=== PATIENT | male | born 1940 ===

== ENCOUNTER 2017-09-22 16:44 | Inpatient (IN) | payer MEDICARE, MEDICAID ==
[2017-09-22] MEDS ORDERED: Albuterol-Ipratrop 3 mg / 0.5 (3 ml) UD IH STA ×3 (17:49→20:21)
[2017-09-22 18:42] LABS: VENOUS BLOOD GAS BASE EXCESS 3.2 mmol/L (0.0-2.0); VENOUS BLOOD GAS PO2 143 mm/Hg (30-55); VENOUS BLOOD PH 7.36 (7.32-7.43)
[2017-09-22 18:51] LABS: ALBUMIN 3.3 g/dL (3.0-4.8); ALT/SGPT 20 U/L (7-56); AST/SGOT 30 U/L (17-59); BLOOD UREA NITROGEN 17 mg/dL (7-21); CALCIUM 8.5 mg/dL (8.4-10.5); GFR AFRICAN-AMERICAN > 60; GFR NON-AFRICAN AMERICAN > 60
[2017-09-22 18:52] LABS: BASO # 0.04 [, K/mm3] (0.0-2.0); BASO % 0.6 % (0.0-3.0); EOS # 0.5 (0.0-0.7); EOS % 6.4 % (1.5-5.0); GRAN # 4.59 (1.4-6.5); GRAN % 63.3 % (50.0-68.0); HEMOGLOBIN 12.4 g/dL (14.0-18.0); LYMPH # 1.1 (1.2-3.4); LYMPH % 15.2 % (22.0-35.0); MEAN CELL VOLUME 83.6 fl (80.0-105.0); MEAN CORPUSCULAR HEMOGLOBIN 26.1 pg (25.0-35.0); MEAN CORPUSCULAR HGB CONC 31.2 g/dl (31.0-37.0); MONO # 1.1 (0.1-0.6); MONO % 14.5 % (1.0-6.0); RBC 4.76 [, 10^6/uL] (3.5-6.1); RED CELL DISTRIBUTION WIDTH 17.5 % (11.5-14.5); WHITE BLOOD COUNT 7.2 [, 10^3/ul] (4.5-11.0)
[2017-09-22 18:54] LABS: URINE BILIRUBIN NEGATIVE (NEGATIVE); URINE BLOOD NEGATIVE (NEGATIVE); URINE GLUCOSE (UA) NEGATIVE (NEGATIVE); URINE LEUKOCYTE ESTERASE NEGATIVE Leu/uL (NEGATIVE); URINE NITRATE NEGATIVE (NEGATIVE); URINE PROTEIN NEGATIVE mg/dL (<30 mg/dL); URINE UROBILINOGEN 0.2 E.U./dL (<1 E.U./dL)
[2017-09-22 18:58] LABS: URINE APPEARANCE CLEAR (CLEAR); URINE COLOR YELLOW (YELLOW)
[2017-09-22 19:01] LABS: INR 2.25 (0.93-1.08); PARTIAL THROMBOPLASTIN TIME 35.3 Seconds (25.1-36.5); PROTHROMBIN TIME 26.1 SECONDS (9.4-12.5)
[2017-09-22 19:02] LABS: TROPONIN I < 0.01 ng/mL
[2017-09-22] MEDS ORDERED: Azithromycin 500MG/NS 250ml 500 MG/250 ML BAG IVPB STA (19:31)
[2017-09-22] MEDS ORDERED: cefTRIAXone 1 gm 1 GM/100 ML BAG IVPB STA (19:31)
--- NOTE | 2017-09-22 19:52 | ED PDOC ---
Arrival/HPI - General Chief Complaint: Shortness Of Breath Time Seen by Provider: 09/22/17 17:06 Historian: Jail, EMS - History of Present Illness Narrative History of Present Illness (Text): 09/22/17 19:57 Patient is a 77 yo male presents from residential with history of "wheezing". Patient is nonverbal and cannot provide any further history. Past Medical History - Cardiac Hx Cardiac Disorders: Yes Hx Atrial Fibrillation: Yes Hx Congestive Heart Failure: Yes Hx Hypertension: Yes - Pulmonary Hx Asthma: Yes - Neurological HX Cerebrovascular Accident: Yes Hx Dementia: Yes - Endocrine/Metabolic Hx Diabetes Mellitus Type 1: Yes - Gastrointestinal Hx Gastroesophageal Reflux: Yes - Psychiatric Hx Substance Use: No Family/Social History Family/Social History: Unknown Family HX Smoking Status: Unknown If Ever Smoked Hx Alcohol Use: No Hx Substance Use: No Allergies/Home Meds Allergies/Adverse Reactions: Allergies Iodinated Contrast- Oral and IV Dye Allergy (Verified 09/22/17 17:19) ANAPHYLAXIS iodine Allergy (Verified 09/22/17 17:19) ANAPHYLAXIS Sulfa (Sulfonamide Antibiotics) Allergy (Verified 09/22/17 17:19) ANAPHYLAXIS Home Medications: Home Meds Medication Instructions Recorded Confirmed Acetaminophen [Tylenol 325mg tab] 650 mg PO Q4 PRN 09/22/17 09/22/17 Aspirin [Aspirin Chewable] 81 mg PO DAILY 09/22/17 09/22/17 Cetirizine HCl [All Day Allergy] 10 mg PO HS 09/22/17 09/22/17 Magnesium Hydroxide [Milk of 09/22/17 Magnesia] Omeprazole [Omeprazole] 20 mg PO DAILY 09/22/17 09/22/17 Potassium Chloride [Klor-Con 20 meq PO DAILY 09/22/17 09/22/17 Sprinkle] SITagliptin [Januvia] 25 mg PO DAILY 09/22/17 09/22/17 Simvastatin [Simvastatin] 10 mg PO DAILY 09/22/17 09/22/17 Tamsulosin [Flomax] 0.4 mg PO DAILY 09/22/17 09/22/17 Warfarin [Coumadin] 3 mg PO DAILY 09/22/17 09/22/17 Review of Systems - Review of Systems Respiratory: SOB, Cough, Wheezing Physical Exam Vital Signs Reviewed: Yes Vital Signs Temp Pulse Resp BP Pulse Ox 09/22/17 18:24 101.4 F H 09/22/17 17:09 99.2 F 84 16 109/66 99 09/22/17 16:56 19 100 Temperature: Febrile Respiratory Rate: Tachypneic Appearance: Positive for: Ill-Appearing Mental Status: Positive for: Confused Finger Stick Blood Glucose: 100 - Systems Exam Head: Present: Atraumatic Mouth: Present: Dry Pharnyx: No: ERYTHEMA Nose (Internal): Present: Normal Inspection, No Active Bleeding Neck: No: Meningeal Signs Respiratory/Chest: Present: Wheezes, Rhonchi, Tachypneic Cardiovascular: Present: Murmurs, Tachycardic Abdomen: Present: Distention. No: Tenderness Rectal: No: Gross Blood, Melena Upper Extremity: Present: Other (contractures). No: Cyanosis Lower Extremity: Present: Other (contractures, right heel ulcer and boot) Neurological: Present: Other (contractures, will not follow commands or speak) Skin: Present: Warm Psychiatric: No: Normal Insight, Normal Concentration Medical Decision Making ED Course and Treatment: 09/22/17 20:14 Patient presents from [facility] reportedly with history of asthma presents with wheezing and shortness of breath. Patient is not verbal, review of [facility] records states prior history of cva, diabetes, htn, asthma. Duoneb given with no improvement in wheezing. Additional nebulizers ordered. He is febrile. Questionable infiltrate noted on cxr. Will obtain blood cultures and initiate antibiotics. Initial lactate unremarkable. Remains tachypneic. BP stable. Will admit for fever, asthma exacerbation, ? pneumonia. No prior admissions to [facility], will admit to on-call physician. 09/22/17 20:[address] Abdirizak Luis, requests admission to [facility]. - Lab Interpretations Lab Results: 09/22/17 18:00 09/22/17 18:00 Lab Results 09/22/17 20:22: pCO2 27 L, pO2 132.0 H, HCO3 15.6 L, ABG pH 7.37, ABG Total CO2 16.4 L, ABG O2 Saturation 99.8 H, ABG Base Excess -8.1 L, ABG Potassium 1.9 L*, Glucose 69 L, Lactate 0.6 L, FiO2 32.0, Sodium 149.0 H, Chloride 123.0 H, Arterial Blood Potassium 1.9 L* 09/22/17 18:34: pO2 143 H, VBG pH 7.36, VBG pCO2 53.0, VBG HCO3 29.9 H, VBG Total CO2 31.5 H, VBG O2 Sat (Calc) 100.4 H, VBG Base Excess 3.2 H, VBG Potassium 4.1, Glucose 103, Lactate 1.0, FiO2 21.0, Sodium 138.0, Chloride 106.0 , Venous Blood Potassium 4.1 09/22/17 18:30: Urine Color Yellow, Urine Appearance Clear, Urine pH 6.0, Ur Specific [place] 1.020, Urine Protein Negative, Urine Glucose (UA) Negative, Urine Ketones Negative, Urine Blood Negative, Urine Nitrate Negative, Urine Bilirubin Negative, Urine Urobilinogen 0.2, Ur Leukocyte Esterase Negative 09/22/17 18:30: Influenza Typ A,B (EIA) Negative for flu a/b 09/22/17 18:06: POC Glucose (mg/dL) 100 09/22/17 18:00: Digoxin < 0.4 L 09/22/17 18:00: Sodium 138, Potassium 4.0, Chloride 104, Carbon Dioxide 29, Anion Gap 10, BUN 17, Creatinine 0.7 L, Est GFR ( Amer) > 60, Est GFR ( Non-Af Amer) > 60, Random Glucose 98, Calcium 8.5, Total Bilirubin 0.4, AST 30, ALT 20, Alkaline Phosphatase 61, Lactate Dehydrogenase 319 L, Total Creatine Kinase 28 L, Troponin I < 0.01, Total Protein 6.5, Albumin 3.3, Globulin 3.2, Albumin/Globulin Ratio 1.0 L 09/22/17 18:00: PT 26.1 H, INR 2.25 H, APTT 35.3 09/22/17 18:00: WBC 7.2, RBC 4.76, Hgb 12.4 L, Hct 39.8 L, MCV 83.6, MCH 26.1, MCHC 31.2, RDW 17.5 H, Plt Count 150, MPV 10.0, Gran % 63.3, Lymph % (Auto) 15.2 L, [place] % (Auto) 14.5 H, Eos % (Auto) 6.4 H, Baso % (Auto) 0.6, Gran # 4.59 , Lymph # 1.1 L, [place] # 1.1 H, Eos # 0.5, Baso # 0.04 - RAD Interpretation Radiology Orders: 09/22/17 17:47 CHEST PORTABLE [RAD] Stat - EKG Interpretation EKG Interpretation (Text): EKG at 17:51 sinus tachycardia with premature atrial complexes, right bundle branch block, nonspecific t wave abnormality Interpreted by ED Physician: Yes Type: 12 lead EKG - Medication Orders Current Medication Orders: Discontinued Medications Acetaminophen (Tylenol 650 Mg Supp) 650 mg RC ONCE STA Stop: 09/22/17 18:25 Last Admin: 09/22/17 18:55 Dose: 650 mg MAR Pain/Vitals Document 09/22/17 18:55 SF (Rec: 09/22/17 18:55 SF [id number]) Pain Reassessment Is This A Pain ReAssessment? Yes Sleep Is patient sleeping during reassessment? No Presence of Pain Presence of Pain Yes Albuterol/Ipratropium (Duoneb 3 Mg/0.5 Mg (3 Ml) Ud) 3 ml IH STAT STA Stop: 09/22/17 17:50 Last Admin: 09/22/17 17:55 Dose: 3 ml Albuterol/Ipratropium (Duoneb 3 Mg/0.5 Mg (3 Ml) Ud) 3 ml IH STAT STA Stop: 09/22/17 20:11 Last Admin: 09/22/17 20:15 Dose: 3 ml Albuterol/Ipratropium (Duoneb 3 Mg/0.5 Mg (3 Ml) Ud) 3 ml IH STAT STA Stop: 09/22/17 20:22 Last Admin: 09/22/17 20:35 Dose: 3 ml Ceftriaxone Sodium (Rocephin 1 Gram Ivpb) 1 gm in 100 mls @ 200 mls/hr IVPB ONCE STA PRN Reason: Protocol Stop: 09/22/17 20:00 Last Admin: 09/22/17 20:20 Dose: 200 mls/hr eMAR Start Stop Document 09/22/17 20:20 JOL (Rec: 09/22/17 21:00 JOL [id number]) Intravenous Solution Start Date 09/22/17 Start Time 20:20 End Date 09/22/17 End time 20:50 Total Infusion Time 30 Azithromycin (Zithromax 500mg In Ns) 500 mg in 250 mls @ 166.667 mls/hr IVPB STAT STA PRN Reason: Protocol Stop: 09/22/17 21:00 Last Admin: 09/22/17 22:09 Dose: 166.667 mls/hr eMAR Start Stop Document 09/22/17 22:09 JOJuan (Rec: 09/22/17 22:09 JOL [id number]) Intravenous Solution Start Date 09/22/17 Start Time 22:09 End Date 09/22/17 End time 23:39 Total Infusion Time 90 Levalbuterol HCl (Xopenex) 0.63 mg IH ONCE STA Stop: 09/22/17 21:59 Last Admin: 09/22/17 22:21 Dose: 0.63 mg Methylprednisolone (Solu-Medrol) 125 mg IVP STAT STA Stop: 09/22/17 22:01 Last Admin: 09/22/17 22:21 Dose: 125 mg IVP Administration Document 09/22/17 22:21 YP (Rec: 09/22/17 22:21 YP [id number]) Charges for Administration # of IVP Administrations 1 Disposition/Present on Arrival - Present on Arrival Any Indicators Present on Arrival: No History of DVT/PE: No History of Uncontrolled Diabetes: No Urinary Catheter: No History of Decub. Ulcer: No History Surgical Site Infection Following: None - Disposition Have Diagnosis and Disposition been Completed?: Yes Diagnosis: Asthma exacerbation, Fever, Pneumonia Disposition: HOSPITALIZED Disposition Time: 20:21 Patient Plan: Admission, Telemetry Patient Problems: Current Active Problems Problem Status Onset Asthma exacerbation Acute Fever Acute Pneumonia Acute Condition: SERIOUS
[2017-09-22 20:25] LABS: ARTERIAL BLOOD GAS HCO3 15.6 mmol/L (21-28); ARTERIAL BLOOD GAS O2 SAT 99.8 % (95-98); ARTERIAL BLOOD GAS PCO2 27 mm/Hg (35-45); ARTERIAL BLOOD GAS PH 7.37 (7.35-7.45); ARTERIAL BLOOD GAS TCO2 16.4 mmol.L (22-28)
--- NOTE | 2017-09-22 21:41 | CP.PCM.HP ---
<Trent Thrasher - Last Filed: 09/23/17 07:00> History of Present Illness - History of Present Illness History of Present Illness: Chief Complaint: Shortness of breath and wheezing. As per nursing staff at [facility] patient is not aphasic; normally patient can speak in sentences however does not usually like to speak but will from time to time. However this morning patient was not communicating as he normally can and therefore was seen as a change in mental status. Patient is [place] speaking, understanding of Tunisian is limited. HPI: History obtained from nursing staff at [facility] since patient is unable to communicate due to alteration of mental status. As per nursing staff patient is a 77 year old male with a past medical history of Cerebrovascular accident in 2011, non insulin dependent diabetes mellitus, hyperlipidemia, hypertension, atrial fibrillation, asthma, gastroesophageal reflux disease, benign prostatic hyperplasia, degenerative nervous system disease, osteoarthropathy who presented this morning with shortness of breath associated with use of accessory muscles as well as bradycardia at 42 bpm. residential physician was notified and patient was admitted to [facility] ED. PMD: Dr. Luis Past medical history: Cerebrovascular accident in 2011, non insulin dependent diabetes mellitus, hyperlipidemia, hypertension, atrial fibrillation, asthma, gastroesophageal reflux disease, benign prostatic hyperplasia, degenerative nervous system disease, osteoarthropathy Medications: Aspirin 81 po daily, zantac 10 mg qHS, omeprazole 20 mg qD, 1 daily multivitamin, potassium chloride 20 MEQ qD, zocor 10 mg qD, flomax 0.4 mg qD, coumadin 3 mg daily except Thursday and Thursday, januvia 25 mg 1 tab qD, Duoneb q6h PRN Family history: unobtainable Past Surgical history: residential denies Allergies: Oral/IV contrast, iodine Present on Admission - Present on Admission Any Indicators Present on Admission: No Review of Systems - Review of Systems Systems not reviewed;Unavailable: Altered Mental Status Past Patient History - Past Social History Smoking Status: Unknown If Ever Smoked - CARDIAC Hx Cardiac Disorders: Yes Hx Atrial Fibrillation: Yes Hx Congestive Heart Failure: Yes Hx Hypertension: Yes - PULMONARY Hx Asthma: Yes - NEUROLOGICAL HX Cerebrovascular Accident: Yes Hx Dementia: Yes - ENDOCRINE/METABOLIC Hx Diabetes Mellitus Type 1: Yes - GASTROINTESTINAL Hx Gastroesophageal Reflux: Yes - PSYCHIATRIC Hx Substance Use: No Meds Allergies/Adverse Reactions: Allergies Allergy/AdvReac Type Severity Reaction Status Date / Time Iodinated Contrast- Oral and Allergy ANAPHYLAXIS Verified 09/22/17 17:19 IV Dye iodine Allergy ANAPHYLAXIS Verified 09/22/17 17:19 Sulfa (Sulfonamide Allergy ANAPHYLAXIS Verified 09/22/17 17:19 Antibiotics) Physical Exam - Head Exam Head Exam: ATRAUMATIC, NORMAL INSPECTION, NORMOCEPHALIC - Eye Exam Eye Exam: EOMI, Normal appearance - ENT Exam ENT Exam: Mucous Membranes Moist, Normal Exam - Respiratory Exam Respiratory Exam: Clear to Auscultation Bilateral, Rhonchi (upper quadrant B/L) , Wheezes, NORMAL BREATHING PATTERN - Cardiovascular Exam Cardiovascular Exam: Irregular Rhythm - GI/Abdominal Exam GI & Abdominal Exam: Normal Bowel Sounds, Soft - Extremities Exam Extremities exam: Positive for: pedal edema (bilaterally) - Back Exam Back exam: NORMAL INSPECTION - Neurological Exam Neurological exam: Altered - Skin Skin Exam: Normal Color, Warm Results - Vital Signs Recent Vital Signs: Last Vital Signs Temp 101.4 F H 09/22/17 18:24 Pulse 84 09/22/17 17:09 Resp 16 09/22/17 17:09 BP 109/66 09/22/17 17:09 Pulse Ox 99 09/22/17 17:09 - Labs Result Diagrams: 09/22/17 18:00 09/22/17 18:00 Labs: Laboratory Results - last 24 hr 09/22/17 09/22/17 09/22/17 18:00 18:00 18:00 WBC 7.2 RBC 4.76 Hgb 12.4 L Hct 39.8 L MCV 83.6 MCH 26.1 MCHC 31.2 RDW 17.5 H Plt Count 150 MPV 10.0 Gran % 63.3 Lymph % (Auto) 15.2 L [place] % (Auto) 14.5 H Eos % (Auto) 6.4 H Baso % (Auto) 0.6 Gran # 4.59 Lymph # 1.1 L [place] # 1.1 H Eos # 0.5 Baso # 0.04 PT 26.1 H INR 2.25 H APTT 35.3 pCO2 pO2 HCO3 ABG pH ABG Total CO2 ABG O2 Saturation ABG Base Excess ABG Potassium VBG pH VBG pCO2 VBG HCO3 VBG Total CO2 VBG O2 Sat (Calc) VBG Base Excess VBG Potassium Glucose Lactate FiO2 Sodium 138 Potassium 4.0 Chloride 104 Carbon Dioxide 29 Anion Gap 10 BUN 17 Creatinine 0.7 L Est GFR ( Amer) > 60 Est GFR (Non-Af Amer) > 60 POC Glucose (mg/dL) Random Glucose 98 Calcium 8.5 Total Bilirubin 0.4 AST 30 ALT 20 Alkaline Phosphatase 61 Lactate Dehydrogenase 319 L Total Creatine Kinase 28 L Troponin I < 0.01 Total Protein 6.5 Albumin 3.3 Globulin 3.2 Albumin/Globulin Ratio 1.0 L Arterial Blood Potassium Venous Blood Potassium Urine Color Urine Appearance Urine pH Ur Specific [place] Urine Protein Urine Glucose (UA) Urine Ketones Urine Blood Urine Nitrate Urine Bilirubin Urine Urobilinogen Ur Leukocyte Esterase Digoxin Influenza Typ A,B (EIA) 09/22/17 09/22/17 09/22/17 18:00 18:06 18:30 WBC RBC Hgb Hct MCV MCH MCHC RDW Plt Count MPV Gran % Lymph % (Auto) [place] % (Auto) Eos % (Auto) Baso % (Auto) Gran # Lymph # [place] # Eos # Baso # PT INR APTT pCO2 pO2 HCO3 ABG pH ABG Total CO2 ABG O2 Saturation ABG Base Excess ABG Potassium VBG pH VBG pCO2 VBG HCO3 VBG Total CO2 VBG O2 Sat (Calc) VBG Base Excess VBG Potassium Glucose Lactate FiO2 Sodium Potassium Chloride Carbon Dioxide Anion Gap BUN Creatinine Est GFR ( Amer) Est GFR (Non-Af Amer) POC Glucose (mg/dL) 100 Random Glucose Calcium Total Bilirubin AST ALT Alkaline Phosphatase Lactate Dehydrogenase Total Creatine Kinase Troponin I Total Protein Albumin Globulin Albumin/Globulin Ratio Arterial Blood Potassium Venous Blood Potassium Urine Color Urine Appearance Urine pH Ur Specific [place] Urine Protein Urine Glucose (UA) Urine Ketones Urine Blood Urine Nitrate Urine Bilirubin Urine Urobilinogen Ur Leukocyte Esterase Digoxin < 0.4 L Influenza Typ A,B (EIA) Negative for flu a/b 09/22/17 09/22/17 09/22/17 18:30 18:34 20:22 WBC RBC Hgb Hct MCV MCH MCHC RDW Plt Count MPV Gran % Lymph % (Auto) [place] % (Auto) Eos % (Auto) Baso % (Auto) Gran # Lymph # [place] # Eos # Baso # PT INR APTT pCO2 27 L pO2 143 H 132.0 H HCO3 15.6 L ABG pH 7.37 ABG Total CO2 16.4 L ABG O2 Saturation 99.8 H ABG Base Excess -8.1 L ABG Potassium 1.9 L* VBG pH 7.36 VBG pCO2 53.0 VBG HCO3 29.9 H VBG Total CO2 31.5 H VBG O2 Sat (Calc) 100.4 H VBG Base Excess 3.2 H VBG Potassium 4.1 Glucose 103 69 L Lactate 1.0 0.6 L FiO2 21.0 32.0 Sodium 138.0 149.0 H Potassium Chloride 106.0 123.0 H Carbon Dioxide Anion Gap BUN Creatinine Est GFR ( Amer) Est GFR (Non-Af Amer) POC Glucose (mg/dL) Random Glucose Calcium Total Bilirubin AST ALT Alkaline Phosphatase Lactate Dehydrogenase Total Creatine Kinase Troponin I Total Protein Albumin Globulin Albumin/Globulin Ratio Arterial Blood Potassium 1.9 L* Venous Blood Potassium 4.1 Urine Color Yellow Urine Appearance Clear Urine pH 6.0 Ur Specific [place] 1.020 Urine Protein Negative Urine Glucose (UA) Negative Urine Ketones Negative Urine Blood Negative Urine Nitrate Negative Urine Bilirubin Negative Urine Urobilinogen 0.2 Ur Leukocyte Esterase Negative Digoxin Influenza Typ A,B (EIA) Assessment & Plan - Assessment and Plan (Free Text) Assessment: 77 year old male with a past medical history of Cerebrovascular accident in 2012, non insulin dependent diabetes mellitus, hyperlipidemia, hypertension, atrial fibrillation, asthma, gastroesophageal reflux disease, benign prostatic hyperplasia, degenerative nervous system disease, ostearthropathy who presented this morning with shortness of breath associated with use of accessory muscles as well as bradycardia at 42 bpm. Plan: AMS secondary to pneumonia vs. abdominal infection vs. UTI -Febrile at 101.4, WBC 7.2 continue to monitor vitals and CBC, CMP, Mg, Phos -Chest X-ray:infiltrates on right lower lung field; official read pending -Started on azithromycin and rocephin -CT chest ordered; results pending -CT abdomen/pelvis ordered; results pending -Blood and Urine cultures ordered; results pending -Procalcitonin ordered; results pending Asthma Exacerbation -Xopenex -Methylprednisolone -NC 2L; keep O2 saturation >92% Cerebrovascular accident in 2012 -Continue lipitor, aspirin -Swallow evaluation Diabetes Mellitus Type II -Insulin sliding scale-low -Blood glucose 100; continue to monitor -Home medication withheld Hyperlipidemia -Continue lipitor Hypertension -No intervention needed at this time Atrial fibrillation -Continue with coumadin Gastroesophageal reflux -Continue with protonix Benign prostatic hyperplasia -Continue with home tamsulosin DVT/GI prophylaxis: coumadin+SCDs/protonix <Marine Billy - Last Filed: 09/23/17 08:29> Results - Vital Signs Recent Vital Signs: Last Vital Signs Temp 97.4 F L 09/23/17 02:44 Pulse 74 09/23/17 02:44 Resp 16 09/23/17 02:44 BP 109/70 09/23/17 02:44 Pulse Ox 98 09/22/17 23:30 - Labs Result Diagrams: 09/23/17 06:30 09/23/17 06:30 Labs: Laboratory Results - last 24 hr 09/23/17 09/23/17 09/23/17 02:30 04:35 06:30 WBC 3.9 L D RBC 4.94 Hgb 12.8 L Hct 41.3 L MCV 83.6 MCH 25.9 MCHC 31.0 RDW 17.4 H Plt Count 133 MPV 9.7 Sodium Potassium Chloride Carbon Dioxide Anion Gap BUN Creatinine Est GFR ( Amer) Est GFR (Non-Af Amer) POC Glucose (mg/dL) 154 H Random Glucose Calcium Phosphorus Magnesium Total Bilirubin AST ALT Alkaline Phosphatase NT-Pro-B Natriuret Pep 475 H Total Protein Albumin Globulin Albumin/Globulin Ratio 09/23/17 09/23/17 06:30 07:33 WBC RBC Hgb Hct MCV MCH MCHC RDW Plt Count MPV Sodium 143 Potassium 4.0 Chloride 106 Carbon Dioxide 27 Anion Gap 15 BUN 15 Creatinine 0.7 L Est GFR ( Amer) > 60 Est GFR (Non-Af Amer) > 60 POC Glucose (mg/dL) 141 H Random Glucose 161 H Calcium 8.7 Phosphorus 3.5 Magnesium 1.6 L Total Bilirubin 0.3 AST 17 D ALT 16 Alkaline Phosphatase 65 NT-Pro-B Natriuret Pep Total Protein 6.8 Albumin 3.5 Globulin 3.4 Albumin/Globulin Ratio 1.0 L Attending/Attestation - Attestation I have personally seen and examined this patient.: Yes I have fully participated in the care of the patient.: Yes I have reviewed all pertinent clinical information: Yes Notes (Text): 09/23/17 08:28 Agree with documentation and orders placed.
[2017-09-22] MEDS ORDERED: Levalbuterol 0.63 MG/3 ML Inhal Soln UD IH STA (21:58)
--- NOTE | 2017-09-23 01:31 | CT ---
EXAM: CT Chest Without Intravenous Contrast CT Abdomen and Pelvis Without Intravenous Contrast CLINICAL HISTORY: 77 years old, male; Pain; Abdominal pain; Generalized; Chest pain; Patient HX: Pt contracted; Additional info: Abdominal pain on phys exam, AMS TECHNIQUE: Axial computed tomography images of the chest, abdomen and pelvis without intravenous contrast. All CT scans at this facility use one or more dose reduction techniques, viz.: automated exposure control; ma/kV adjustment per patient size (including targeted exams where dose is matched to indication; i.e. head); or iterative reconstruction technique. [id number] images are submitted. Coronal and sagittal reformatted images were created and reviewed. Limitations: Absence of IV contrast decreases sensitivity for detecting solid organ and vascular abnormality and injury. COMPARISON: No relevant prior studies available. FINDINGS: Artifacts: Limited due to motion and misregistration artifacts. CHEST: Lungs: There is moderate perihilar interstitial prominence consistent with viral bronchitis versus reactive airway disease versus chronic changes versus early failure. Bibasilar nonspecific infiltrates are present, consistent with atelectasis or pneumonia. Partially distended bladder measuring 13 cm with bladder wall thickening. Correlation with urinalysis is recommended only if clinical cystitis versus chronic obstruction is clinically suspected. The major airways are patent. COPD. Pleural space: Unremarkable. No significant effusion. No pneumothorax. Heart: Cardiomegaly with small pericardial effusion. ABDOMEN: Liver: Unremarkable. Gallbladder and bile ducts: Cholecystectomy. Pancreas: Unremarkable. No ductal dilation. Spleen: Unremarkable. No splenomegaly. Adrenals: There is nonspecific adrenal gland thickening. Kidneys and ureters: Nonobstructive renal stones. Right posterior renal collecting systems/pelvis stone. Complex anterior septated left renal cysts. Subcentimeter right renal cysts. Stomach and bowel: There is fecal distention of the rectum measuring 11 cm with colonic wall thickening representing constipation versus fecal impaction versus stool related proctocolitis. Diverticulosis. End Appendix: Nonspecific gastric thickening likely due to under distention. Correlation with clinical data is recommended if gastritis is suspected. Near normal appendix. PELVIS: Bladder: See above. Reproductive: Unremarkable. CHEST, ABDOMEN and PELVIS: Intraperitoneal space: Unremarkable. No significant fluid collection. No free air. Bones/joints: Degenerative changes within bilateral shoulders. Bony aortic arch. No acute fracture. No dislocation. Soft tissues: Bilateral gynecomastia. Bilateral inguinal herniation of fat. Vasculature: IVC filter. The aorta demonstrates calcified plaque and is mildly ectatic but normal in caliber. Lymph nodes: Unremarkable. No enlarged lymph nodes. IMPRESSION: 1. There is moderate perihilar interstitial prominence consistent with viral bronchitis versus reactive airway disease versus chronic changes versus early failure. Bibasilar nonspecific infiltrates are present, consistent with atelectasis or pneumonia. 2. There is fecal distention of the rectum measuring 11 cm with colonic wall thickening representing constipation versus fecal impaction versus stool related proctocolitis. 3. Partially distended bladder measuring 13 cm with bladder wall thickening. Correlation with urinalysis is recommended only if clinical cystitis versus chronic obstruction is clinically suspected. 4. Nonobstructive renal stones. Right posterior renal collecting systems/pelvis stone. Correlation with internal medicine evaluation and further workup or followup as recommended by patient's clinical data.
[2017-09-23 04:18] VITALS: BMI 20.1
[2017-09-23 07:14] LABS: HEMOGLOBIN 12.8 g/dL (14.0-18.0); MEAN CELL VOLUME 83.6 fl (80.0-105.0); MEAN CORPUSCULAR HEMOGLOBIN 25.9 pg (25.0-35.0); MEAN PLATELET VOLUME 9.7 fl (7.0-11.0); RBC 4.94 [, 10^6/uL] (3.5-6.1); RED CELL DISTRIBUTION WIDTH 17.4 % (11.5-14.5); WHITE BLOOD COUNT 3.9 [, 10^3/ul] (4.5-11.0)
[2017-09-23 08:02] LABS: ALBUMIN 3.5 g/dL (3.0-4.8); ALT/SGPT 16 U/L (7-56); AST/SGOT 17 U/L (17-59); BLOOD UREA NITROGEN 15 mg/dL (7-21); CALCIUM 8.7 mg/dL (8.4-10.5); GFR AFRICAN-AMERICAN > 60; GFR NON-AFRICAN AMERICAN > 60; MAGNESIUM 1.6 mg/dL (1.7-2.2)
[2017-09-23] MEDS: Insulin Reg-LOW-Coverage SC SCH ×4 (08:13→22:51)
--- NOTE | 2017-09-23 08:30 | CARD ---
APPROVED REPORT EKG Measurement Heart [id number] <Conclusion> Sinus rhythm with premature atrial complexes Low voltage QRS Incomplete right bundle branch block Nonspecific T wave abnormality Abnormal ECG
[2017-09-23 08:40] LABS: INR 1.82 (0.93-1.08); PROTHROMBIN TIME 21.2 SECONDS (9.4-12.5)
[2017-09-23] MEDS ORDERED: Azithromycin 250 MG in Sodium Chloride 0.9% 250 ML IVPB SCH (10:00)
[2017-09-23] MEDS ORDERED: cefTRIAXone 1 gm 1 GM/100 ML BAG IVPB SCH (10:00)
[2017-09-23] MEDS ORDERED: Azithromycin 500MG/NS 250ml 500 MG/250 ML BAG IVPB SCH (10:00)
[2017-09-23] MEDS ORDERED: cefTRIAXone 2 GM IN NS 2 GM/100 ML BAG IVPB SCH (10:00)
[2017-09-23] MEDS: MethylPREDNISolone 40 mg Vial IVP SCH ×2 (10:52→21:21)
[2017-09-23] MEDS ORDERED: Magnesium Oxide 400 mg Tab UD PO STA (13:03)
--- NOTE | 2017-09-23 15:01 | CP.PCM.PN ---
<Rachna Weaver - Last Filed: 09/23/17 14:58> Subjective - Date & Time of Evaluation Date of Evaluation: 09/23/17 Time of Evaluation: 14:58 - Subjective Subjective: Rachna Weaver, PGY1, Medicine Progress Note for Dr Nelson: Patient seen and examined at bedside. Pt admitted overnight for HCAP and asthma exacerbation. Pt stable on NC, after duonebs/Xopenex, IV steroids and IV abx coverage. This AM, pt is AOx2, [place]ian speaking, responds to few questions ( baseline as per [facility] staff), denies sob, cp, cough, fever, chills, nausea, vomiting, urinary symptoms, abdominal pain. Limited ROS due to pt's baseline mental status. Objective - Vital Signs/Intake and Output Vital Signs (last 24 hours): Temp Pulse Resp BP Pulse Ox 97.8 F 62 18 113/79 98 09/23/17 09:03 09/23/17 09:03 09/23/17 09:03 09/23/17 09:03 09/23/17 09:03 Intake and Output: 09/23/17 09/23/17 06:59 18:59 Output Total 1 Balance -1 - Medications Medications: Current Medications Aspirin (Aspirin Chewable) 81 mg PO DAILY [facility] Last Admin: 09/23/17 13:04 Dose: 81 mg Atorvastatin Calcium (Lipitor) 10 mg PO DIN [facility] Bisacodyl (Dulcolax) 10 mg RC DAILY [facility] Last Admin: 09/23/17 14:07 Dose: 10 mg Azithromycin (Zithromax 500mg In Ns) 500 mg in 250 mls @ 167 mls/hr IVPB DAILY [facility] PRN Reason: Protocol Last Admin: 09/23/17 10:52 Dose: 167 mls/hr Ceftriaxone Sodium (Rocephin 1 Gram Ivpb) 1 gm in 100 mls @ 200 mls/hr IVPB DAILY [facility] Last Admin: 09/23/17 13:04 Dose: 200 mls/hr Sodium Chloride (Sodium Chloride 0.9%) 1,000 mls @ 100 mls/hr IV .Q10H [facility] Insulin Human Regular (Humulin R Low) 0 units SC ACHS [facility] PRN Reason: Protocol Last Admin: 09/23/17 12:54 Dose: Not Given Levalbuterol HCl (Xopenex) 0.63 mg IH [id number] PRN PRN Reason: Shortness of Breath Methylprednisolone (Solu-Medrol) 40 mg IVP Q12 [facility] Last Admin: 09/23/17 10:52 Dose: 40 mg Pantoprazole Sodium (Protonix Ec Tab) 40 mg PO ACB [facility] Polyethylene Glycol (Miralax) 17 gm PO BID [facility] Tamsulosin HCl (Flomax) 0.4 mg PO DAILY [facility] Last Admin: 09/23/17 13:04 Dose: 0.4 mg Warfarin Sodium (Coumadin) 4 mg PO 1800 [facility] PRN Reason: Protocol - Labs Labs: 09/23/17 06:30 09/23/17 06:30 PT 21.2 SECONDS (9.4-12.5) H 09/23/17 08:00 INR 1.82 (0.93-1.08) H 09/23/17 08:00 APTT 35.3 Seconds (25.1-36.5) 09/22/17 18:00 - Additional Findings Additional findings: - Head Exam Head Exam: ATRAUMATIC, NORMAL INSPECTION, NORMOCEPHALIC - Eye Exam Eye Exam: EOMI, Normal appearance - ENT Exam ENT Exam: Mucous Membranes Moist, Normal Exam - Respiratory Exam Respiratory Exam: Mild expiratory wheezing bilateral upper lobes. No accessory muscle use, rales, rhonchi. - Cardiovascular Exam Cardiovascular Exam: Irregular Rhythm - GI/Abdominal Exam GI & Abdominal Exam: Normal Bowel Sounds, Soft - Extremities Exam Extremities exam: Positive for: pedal edema (bilaterally). No pedal edema/calf tenderness. - Back Exam Back exam: NORMAL INSPECTION - Neurological Exam Neurological exam: Altered. AOx2. baseline dementia. [facility] patient. Contracted right hand, neck. - Skin Skin Exam: Normal Color, Warm Assessment and Plan - Assessment and Plan (Free Text) Assessment: 77 year old male with a past medical history of CVA (2011), atrial fibrillation on Coumadin, NIDDM, hyperlipidemia, hypertension, asthma, gastroesophageal reflux disease, benign prostatic hyperplasia, degenerative nervous system disease, ostearthropathy, admitted for HCAP, asthma exacerbation: HCAP and viral bronchitis: - Febrile in ED, normal lactate and procal, imaging showed bibasilar infiltrates , given Rocephin and Azithro in ED. -Chest X-ray:infiltrates on right lower lung field - CT chest/abd/pelvis: Moderate perihilar interstitial prominence -viral bronchitis vs reactive airway disease. bibasilar nonspecific infiltrates. fecal distention inr ectum - 11 cm - impaction vs constipation. partially distended bladder measuring 13 cm with bladder wall thickening - cystistis - correlate with UA/clinically - pt denies urinary symptoms, UA neg for infection. - F.u blood/urine cultures. - ID consulted. appreciate recs. Asthma Exacerbation: -Xopenex -Methylprednisolone, will cont to taper -NC 2L; keep O2 saturation >92% Constipation/fecal impaction: - Pt is a poor historian. - Start bowel regimen: miralax bid, dulcolax. Consider enema tomorrow if no BM. Hypomagnesemia: - repleted Hx of CVA: -Continue lipitor, aspirin -Swallow evaluation showed puree with thin liquids. Will start diet. Hx of Diabetes Mellitus Type II: -Insulin sliding scale-low -Blood glucose 100; continue to monitor -Home medication withheld Hyperlipidemia -Continue lipitor Hypertension -No intervention needed at this time Atrial fibrillation: -INR subtherpaeutic. Maintain 2.0-2.5. -increased coumadin to 4 mg today. - Daily INR. adjust dosage accordingly. Gastroesophageal reflux -Continue with protonix Benign prostatic hyperplasia -Continue with home tamsulosin DVT/GI prophylaxis: coumadin+SCDs/protonix Discussed with Dr Nelson. Rachan Weaver, PGY1 <Vanessa Nelson - Last Filed: 09/23/17 16:38> Objective - Vital Signs/Intake and Output Vital Signs (last 24 hours): Temp Pulse Resp BP Pulse Ox 97.8 F 62 18 113/79 98 09/23/17 09:03 09/23/17 09:03 09/23/17 09:03 09/23/17 09:03 09/23/17 09:03 Intake and Output: 09/23/17 09/23/17 06:59 18:59 Output Total 1 Balance -1 - Medications Medications: Current Medications Aspirin (Aspirin Chewable) 81 mg PO DAILY [facility] Last Admin: 09/23/17 13:04 Dose: 81 mg Atorvastatin Calcium (Lipitor) 10 mg PO DIN [facility] Bisacodyl (Dulcolax) 10 mg RC DAILY [facility] Last Admin: 09/23/17 14:07 Dose: 10 mg Sodium Chloride (Sodium Chloride 0.9%) 1,000 mls @ 100 mls/hr IV .Q10H [facility] Last Admin: 09/23/17 16:23 Dose: 100 mls/hr Vancomycin HCl (Vancomycin 1gm) 1 gm in 250 mls @ 167 mls/hr IVPB Q12H [facility] PRN Reason: Protocol Piperacillin Sod/Tazobactam Sod (Zosyn 3.375 In Ns 100ml) 100 mls @ 200 mls/hr IVPB Q6 [facility] PRN Reason: Protocol Stop: 09/24/17 00:29 Insulin Human Regular (Humulin R Low) 0 units SC ACHS [facility] PRN Reason: Protocol Last Admin: 09/23/17 12:54 Dose: Not Given Levalbuterol HCl (Xopenex) 0.63 mg IH [id number] PRN PRN Reason: Shortness of Breath Methylprednisolone (Solu-Medrol) 40 mg IVP Q12 [facility] Last Admin: 09/23/17 10:52 Dose: 40 mg Pantoprazole Sodium (Protonix Ec Tab) 40 mg PO ACB [facility] Polyethylene Glycol (Miralax) 17 gm PO BID [facility] Tamsulosin HCl (Flomax) 0.4 mg PO DAILY [facility] Last Admin: 09/23/17 13:04 Dose: 0.4 mg Warfarin Sodium (Coumadin) 4 mg PO 1800 [facility] PRN Reason: Protocol - Labs Labs: 09/23/17 06:30 09/23/17 06:30 PT 21.2 SECONDS (9.4-12.5) H 09/23/17 08:00 INR 1.82 (0.93-1.08) H 09/23/17 08:00 APTT 35.3 Seconds (25.1-36.5) 09/22/17 18:00 Attending/Attestation - Attestation I have personally seen and examined this patient.: Yes I have fully participated in the care of the patient.: Yes I have reviewed all pertinent clinical information, including history, physical exam and plan: Yes Notes (Text): 09/23/17 16:29 77 year old male with past medical history of CVA, atrial fibrillation, diabetes , hypertension, and asthma who presented with altered mental status and shortness of breath. He was found to have pneumonia and asthma exacerbation. Continue with iv steroids and iv antibiotics. CT also showed fecal distension/constipation. He is started on miralax and dulcolax. Will monitor for response. Continue with coumadin as per INR for history of afib. INR today was 1.86 and coumadin dose was increased. Vanessa Nelson MD Hospitalist.
[2017-09-23] MEDS: Sodium Chloride 0.9% 1,000 ML IV SCH (16:23)
[2017-09-23] MEDS: Vancomycin 1gm in NS 250ml 1 GM/250 ML BAG IVPB SCH (16:45)
[2017-09-23] MEDS ORDERED: Piperacillin/Tazobact 3.375 gm 100 ML IVPB SCH (18:00)
[2017-09-23] MEDS: POLYETHYLENE GLYCOL 3350 17 GM/Dose PACKET PO SCH (18:33)
[2017-09-23] MEDS: Levalbuterol 0.63 MG/3 ML Inhal Soln UD IH PRN (18:45)
[2017-09-23] MEDS: Cefepime 1gm in NS 100ml 1 GM/100 ML BAG IVPB SCH (21:20)
[2017-09-24] MEDS: Sodium Chloride 0.9% 1,000 ML IV SCH ×2 (02:16→04:58)
[2017-09-24] MEDS: Vancomycin 1gm in NS 250ml 1 GM/250 ML BAG IVPB SCH ×2 (04:58→15:17)
[2017-09-24] MEDS: Cefepime 1gm in NS 100ml 1 GM/100 ML BAG IVPB SCH ×2 (05:03→13:00)
[2017-09-24 07:13] LABS: HEMOGLOBIN 11.4 g/dL (14.0-18.0); MEAN CELL VOLUME 83.8 fl (80.0-105.0); MEAN CORPUSCULAR HEMOGLOBIN 25.6 pg (25.0-35.0); MEAN CORPUSCULAR HGB CONC 30.6 g/dl (31.0-37.0); MEAN PLATELET VOLUME 9.9 fl (7.0-11.0); RBC 4.45 [, 10^6/uL] (3.5-6.1); RED CELL DISTRIBUTION WIDTH 17.4 % (11.5-14.5); WHITE BLOOD COUNT 8.4 [, 10^3/ul] (4.5-11.0)
[2017-09-24] MEDS: Levalbuterol 0.63 MG/3 ML Inhal Soln UD IH PRN ×2 (07:19→14:00)
[2017-09-24 07:20] LABS: INR 2.46 (0.93-1.08); PROTHROMBIN TIME 28.8 SECONDS (9.4-12.5)
--- NOTE | 2017-09-24 07:36 | CON ---
DATE: 09/23/2017 The patient was seen early this morning. CHIEF COMPLAINT: Weakness times several days. HISTORY OF PRESENT ILLNESS: This is a 77-year-old male with past medical history of cerebrovascular accident, diabetes mellitus, hyperlipidemia, hypertension, asthma, GERD, BPH, osteoarthritis, was admitted through the emergency room because of wheezing. The patient is transferred from [facility]. There has been low grade fevers. In the emergency room, the patient did have a temperature of 101.4. There has been mild shortness of breath. No abdominal pain, diarrhea, or constipation. No headaches. PAST MEDICAL HISTORY: Significant for cerebrovascular accident, diabetes mellitus, hyperlipidemia, hypertension, asthma, GERD, BPH, osteoarthritis. PAST SURGICAL HISTORY: Noncontributory. ALLERGIES: THE PATIENT IS ALLERGIC TO IV DYE, IODINE. MEDICATIONS: Include Coumadin, Flomax, statin, omeprazole, aspirin. PHYSICAL EXAMINATION: GENERAL: The patient is in bed, in no acute distress. VITAL SIGNS: Temperature of 97, T-max is 101.4, heart rate of 110, respiratory rate of 20, blood pressure 150/60. HEENT: Unremarkable. NECK: Supple. LUNGS: Decreased breath sounds. HEART: Normal S1 and S2. ABDOMEN: Soft, nontender. LABORATORY DATA: Reveals a white count of 7.2, hemoglobin of 12, platelets of 150, coagulation is noted. Chemistries revealed BUN of 15, creatinine of 0.7, BMP is 475, procalcitonin is less than 0.05. Urinalysis is noted with negative digoxin, less than 0.04. Influenza is negative. Microbiology revealed blood cultures are negative. The patient had a CAT scan of the chest and abdomen, moderate perihilar interstitial prominence consistent with a viral bronchitis versus reactive airway disease, distention, colonic wall thickening, constipation, distended bladder, bibasilar nonspecific infiltrates were present. ASSESSMENT AND PLAN: A 77-year-old male with cerebrovascular accident, diabetes, asthma, hyperlipidemia, hypertension, BPH, GERD, osteoarthritis with sepsis, with healthcare-associated pneumonia with a normal procalcitonin, currently on Zosyn. We will switch to Maxipime and doxycycline. Pending ziegler culture results. We will follow closely with you. Gregory Clark MD [facility] # [id number]
[2017-09-24 08:03] LABS: ALT/SGPT 20 U/L (7-56); AST/SGOT 17 U/L (17-59); BLOOD UREA NITROGEN 19 mg/dL (7-21); CALCIUM 8.4 mg/dL (8.4-10.5); GFR AFRICAN-AMERICAN > 60; GFR NON-AFRICAN AMERICAN > 60
[2017-09-24] MEDS: Insulin Reg-LOW-Coverage SC SCH ×4 (08:19→22:15)
[2017-09-24] MEDS: Pantoprazole 40 mg EC Tab PO SCH (08:21)
[2017-09-24] MEDS ORDERED: Levalbuterol 0.63 MG/3 ML Inhal Soln UD IH STA (09:19)
[2017-09-24] MEDS: MethylPREDNISolone 40 mg Vial IVP SCH ×3 (11:11→21:12)
[2017-09-24] MEDS: POLYETHYLENE GLYCOL 3350 17 GM/Dose PACKET PO SCH ×2 (11:13→17:16)
[2017-09-24] MEDS ORDERED: Levalbuterol 1.25 MG/3 ML Inhal Soln UD IH PRN (15:05)
--- NOTE | 2017-09-24 15:17 | CP.PCM.PN ---
<Rachna Weaver - Last Filed: 09/24/17 15:13> Subjective - Date & Time of Evaluation Date of Evaluation: 09/24/17 Time of Evaluation: 15:13 - Subjective Subjective: Rachna Weaver, PGY1, Medicine Progress Note for Dr Nelson: Patient seen and examined at bedside. No acute events overnight. Pt had 2 small BM overnight. Denies fever, chills, nausea, vomiting, sob, excessive cough, abdominal pain. Pt tolerating pureed diet/thin liquids well as per ancillary staff. Limited ROS due to pt's baseline mental status. Objective - Vital Signs/Intake and Output Vital Signs (last 24 hours): Temp Pulse Resp BP Pulse Ox 98.9 F 84 18 123/79 95 09/24/17 08:03 09/24/17 08:03 09/24/17 08:03 09/24/17 08:03 09/24/17 08:03 Intake and Output: 09/24/17 09/24/17 06:59 18:59 Intake Total 1200 360 Balance 1200 360 - Medications Medications: Current Medications Aspirin (Aspirin Chewable) 81 mg PO DAILY [facility] Last Admin: 09/24/17 11:12 Dose: 81 mg Atorvastatin Calcium (Lipitor) 10 mg PO DIN [facility] Last Admin: 09/23/17 18:32 Dose: 10 mg Bisacodyl (Dulcolax) 10 mg RC DAILY [facility] Last Admin: 09/24/17 11:12 Dose: 10 mg Doxycycline Hyclate (Doryx) 100 mg PO Q12 [facility] PRN Reason: Protocol Stop: 10/02/17 22:01 Last Admin: 09/24/17 11:12 Dose: 100 mg Doxycycline Hyclate (Doryx) 100 mg PO Q12 [facility] PRN Reason: Protocol Vancomycin HCl (Vancomycin 1gm) 1 gm in 250 mls @ 167 mls/hr IVPB Q12H [facility] PRN Reason: Protocol Last Admin: 09/24/17 04:58 Dose: 167 mls/hr Cefepime HCl (Maxipime 1gm) 1 gm in 100 mls @ 100 mls/hr IVPB Q8 [facility] PRN Reason: Protocol Stop: 10/01/17 22:01 Last Admin: 09/24/17 13:00 Dose: 100 mls/hr Insulin Human Regular (Humulin R Low) 0 units SC ACHS [facility] PRN Reason: Protocol Last Admin: 09/24/17 11:53 Dose: Not Given Levalbuterol HCl (Xopenex) 1.25 mg IH Q3H [facility]N PRN Reason: Shortness of Breath Levalbuterol HCl (Xopenex) 1.25 mg IH [id number] [facility] Methylprednisolone (Solu-Medrol) 40 mg IVP Q8 [facility] Last Admin: 09/24/17 14:08 Dose: Not Given Pantoprazole Sodium (Protonix Ec Tab) 40 mg PO ACB [facility] Last Admin: 09/24/17 08:21 Dose: 40 mg Polyethylene Glycol (Miralax) 17 gm PO BID [facility] Last Admin: 09/24/17 11:13 Dose: 17 gm Tamsulosin HCl (Flomax) 0.4 mg PO DAILY [facility] Last Admin: 09/24/17 11:12 Dose: 0.4 mg Warfarin Sodium (Coumadin) 3 mg PO 1800 [facility] PRN Reason: Protocol - Labs Labs: 09/24/17 06:30 09/24/17 06:30 PT 28.8 SECONDS (9.4-12.5) H 09/24/17 06:30 INR 2.46 (0.93-1.08) H 09/24/17 06:30 APTT 35.3 Seconds (25.1-36.5) 09/22/17 18:00 - Constitutional Appears: Non-toxic, In Acute Distress, Older Than Stated Age, Chronically Ill - Head Exam Head Exam: ATRAUMATIC, NORMOCEPHALIC - Eye Exam Eye Exam: EOMI, PERRL. absent: Conjunctival injection, Scleral icterus Pupil Exam: NORMAL ACCOMODATION, PERRL - ENT Exam ENT Exam: Mucous Membranes Moist - Neck Exam Neck Exam: Full ROM - Respiratory Exam Respiratory Exam: Wheezes. absent: Accessory Muscle Use, Chest Wall Tenderness , Rales, Rhonchi, Respiratory Distress, NORMAL BREATHING PATTERN - Cardiovascular Exam Cardiovascular Exam: +S1, +S2. absent: Murmur - GI/Abdominal Exam GI & Abdominal Exam: Soft, Normal Bowel Sounds. absent: Distended, Guarding, Tenderness, Mass, Organomegaly, Rebound - Extremities Exam Extremities Exam: Normal Inspection. absent: Calf Tenderness, Pedal Edema - Back Exam Back Exam: NORMAL INSPECTION - Neurological Exam Neurological Exam: Alert (oriented x2, at baseline), Awake - Psychiatric Exam Psychiatric exam: Normal Affect, Normal Mood - Skin Skin Exam: Dry, Normal Color, Warm Assessment and Plan - Assessment and Plan (Free Text) Assessment: 77 year old male with a past medical history of CVA (2011), atrial fibrillation on Coumadin, NIDDM, hyperlipidemia, hypertension, asthma, gastroesophageal reflux disease, benign prostatic hyperplasia, degenerative nervous system disease, ostearthropathy, admitted for HCAP, asthma exacerbation. Pt wheezing on evaluation today, increased her IV steroids, added Xopenex, pulm consulted: HCAP and viral bronchitis: - Febrile in ED, normal lactate and procal, imaging showed bibasilar infiltrates , given Rocephin and Azithro in ED. -Chest X-ray:infiltrates on right lower lung field - CT chest/abd/pelvis: Moderate perihilar interstitial prominence -viral bronchitis vs reactive airway disease. bibasilar nonspecific infiltrates. fecal distention inr ectum - 11 cm - impaction vs constipation. partially distended bladder measuring 13 cm with bladder wall thickening - cystitis - correlate with UA/clinically - pt denies urinary symptoms, UA neg for infection. - Blood cultures NTD - ID consulted. appreciate recs. C/w Maxipime and Doxycycline D2 Asthma Exacerbation: -Xopenex [facility] and prn -Methylprednisolone, increased to 40 mg IV q8h -NC 2L; keep O2 saturation >92% - Pulm consulted. Appreciate recs. Constipation/fecal impaction: - 2 small BMs overnight. - C/w bowel regimen: miralax bid, dulcolax. - Tolerating PO diet well. Hypomagnesemia: - repleted Hx of CVA: -Continue lipitor, aspirin -Swallow evaluation showed puree with thin liquids. -Tolerating thin liquids, pureed diet Hx of Diabetes Mellitus Type II: -Insulin sliding scale-low -Blood glucose 100; continue to monitor -Home medication withheld Hyperlipidemia -Continue lipitor Hypertension -No intervention needed at this time Atrial fibrillation: -INR 2.46. Maintain 2.0-2.5. -adjusted Coumadin - Daily INR. adjust dosage accordingly. Gastroesophageal reflux -Continue with protonix Benign prostatic hyperplasia -Continue with home tamsulosin DVT/GI prophylaxis: coumadin+SCDs/protonix Discussed with Dr Nelson. Rachna Weaver, PGY1 <Leslie,Anwar A - Last Filed: 09/24/17 16:53> Objective - Vital Signs/Intake and Output Vital Signs (last 24 hours): Temp Pulse Resp BP Pulse Ox 98.9 F 84 18 123/79 95 09/24/17 08:03 09/24/17 08:03 09/24/17 08:03 09/24/17 08:03 09/24/17 08:03 Intake and Output: 09/24/17 09/24/17 06:59 18:59 Intake Total 1200 360 Balance 1200 360 - Medications Medications: Current Medications Aspirin (Aspirin Chewable) 81 mg PO DAILY [facility] Last Admin: 09/24/17 11:12 Dose: 81 mg Atorvastatin Calcium (Lipitor) 10 mg PO DIN [facility] Last Admin: 09/23/17 18:32 Dose: 10 mg Bisacodyl (Dulcolax) 10 mg RC DAILY [facility] Last Admin: 09/24/17 11:12 Dose: 10 mg Doxycycline Hyclate (Doryx) 100 mg PO Q12 [facility] PRN Reason: Protocol Stop: 10/02/17 22:01 Last Admin: 09/24/17 11:12 Dose: 100 mg Doxycycline Hyclate (Doryx) 100 mg PO Q12 [facility] PRN Reason: Protocol Insulin Human Regular (Humulin R Low) 0 units SC ACHS [facility] PRN Reason: Protocol Last Admin: 09/24/17 11:53 Dose: Not Given Levalbuterol HCl (Xopenex) 1.25 mg IH Q3H [facility]N PRN Reason: Shortness of Breath Levalbuterol HCl (Xopenex) 1.25 mg IH [id number] [facility] Methylprednisolone (Solu-Medrol) 40 mg IVP Q8 [facility] Last Admin: 09/24/17 14:08 Dose: Not Given Pantoprazole Sodium (Protonix Ec Tab) 40 mg PO ACB [facility] Last Admin: 09/24/17 08:21 Dose: 40 mg Polyethylene Glycol (Miralax) 17 gm PO BID [facility] Last Admin: 09/24/17 11:13 Dose: 17 gm Tamsulosin HCl (Flomax) 0.4 mg PO DAILY [facility] Last Admin: 09/24/17 11:12 Dose: 0.4 mg Warfarin Sodium (Coumadin) 3 mg PO 1800 [facility] PRN Reason: Protocol - Labs Labs: 09/24/17 06:30 09/24/17 06:30 PT 28.8 SECONDS (9.4-12.5) H 09/24/17 06:30 INR 2.46 (0.93-1.08) H 09/24/17 06:30 APTT 35.3 Seconds (25.1-36.5) 09/22/17 18:00 Attending/Attestation - Attestation I have personally seen and examined this patient.: Yes I have fully participated in the care of the patient.: Yes I have reviewed all pertinent clinical information, including history, physical exam and plan: Yes Notes (Text): 09/24/17 16:51 77 year old male with past medical history of CVA, atrial fibrillation, diabetes , hypertension, and asthma who presented with altered mental status and shortness of breath. He was found to have pneumonia and asthma exacerbation. Continue with iv antibiotics as per ID. Will increase iv steroids today. Pulmonary evaluation is requested. CT also showed fecal distension/constipation which improved with miralax and dulcolax. Continue with coumadin as per INR for history of afib. Vanessa Nelson MD Hospitalist.
[2017-09-24] MEDS: Levalbuterol 0.63 MG/3 ML Inhal Soln UD IH SCH (20:18)
[2017-09-25] MEDS: Levalbuterol 0.63 MG/3 ML Inhal Soln UD IH SCH ×4 (02:00→20:40)
--- NOTE | 2017-09-25 02:35 | PN ---
DATE: 09/24/2017 SUBJECTIVE: Patient is in bed, seen earlier today in 564. PHYSICAL EXAMINATION: VITAL SIGNS: Temperature is 98, blood pressure is 150/60, respiratory rate is 18, heart rate of 74. HEENT: Unremarkable. NECK: Supple. LUNGS: Have decreased breath sounds. HEART: Normal S1, S2. ABDOMEN: Soft, nontender. Laboratory examination reveals a white count of 8.4 and hemoglobin of 11. Chemistries are noted. Procalcitonin is less than 0.05. Urinalysis is noted. Blood cultures, no growth. Urine cultures, no growth. ASSESSMENT AND PLAN: This is a 77-year-old male with cerebrovascular accident, diabetes mellitus, hyperlipidemia, hypertension, gastroesophageal reflux disease, benign prostatic hypertrophy, presenting with sepsis with healthcare-associated pneumonia, normal procalcitonin, on doxycycline. Discontinue the Maxipime with complete 5 to 7 days of doxycycline upon discharge. Gregory Clark MD
[2017-09-25] MEDS: MethylPREDNISolone 40 mg Vial IVP SCH ×3 (05:52→22:32)
[2017-09-25 07:09] LABS: HEMOGLOBIN 11.1 g/dL (14.0-18.0); MEAN CORPUSCULAR HEMOGLOBIN 25.6 pg (25.0-35.0); MEAN CORPUSCULAR HGB CONC 30.1 g/dl (31.0-37.0); MEAN PLATELET VOLUME 10.2 fl (7.0-11.0); RBC 4.34 [, 10^6/uL] (3.5-6.1); RED CELL DISTRIBUTION WIDTH 17.5 % (11.5-14.5)
[2017-09-25 07:23] LABS: ALBUMIN 3.1 g/dL (3.0-4.8); ALT/SGPT 19 U/L (7-56); AST/SGOT 17 U/L (17-59); BLOOD UREA NITROGEN 18 mg/dL (7-21); CALCIUM 8.4 mg/dL (8.4-10.5); GFR AFRICAN-AMERICAN > 60; GFR NON-AFRICAN AMERICAN > 60; INR 3.45 (0.93-1.08); PROTHROMBIN TIME 40.7 SECONDS (9.4-12.5)
[2017-09-25 07:26] LABS: B-TYPE NATRIURETIC PEPTIDE 1170 pg/mL (0-450)
--- NOTE | 2017-09-25 07:40 | CON ---
DATE: 09/24/2017 PULMONARY CONSULTATION REFERRING PHYSICIAN: Dr. Nelson REASON FOR CONSULT: Cough, shortness of breath, wheezing. HISTORY OF PRESENT ILLNESS: This is a 77-year-old gentleman with past medical history significant for CVA, diabetic, hypertension, atrial fibrillation, chronic obstructive lung disease,GERD, BPH, severe arthritis, brought into ER with cough, shortness of breath, wheezing, started on antibiotics, also started on IV and inhaled bronchodilator, has a persistent wheezing, cough and shortness of breath. Past medical history as per history of present illness. ALLERGIES: TO IV AND PO CONTRAST. SOCIAL HISTORY: No history of smoking or alcohol abuse reported. MEDICATIONS: He is on aspirin 81 mg daily, Coumadin 3 mg daily, doxycycline 100 mg twice a day, Dulcolax p.r.n. basis, Flomax 0.4 mg daily, Lipitor 10 mg daily, MiraLax 17 g twice a day, Protonix 40 mg daily, Solu-Medrol 40 mg q. 8 hours, Xopenex 1.25 mg q. 3 hours. REVIEW OF SYSTEMS: No headache, no rhinitis, has cough, shortness of breath, wheezing, no chest pain. No abdominal pain, constipated. No leg pain, no leg swelling. PHYSICAL EXAMINATION: GENERAL: Lying in the bed, [id number] distress secondary to cough and shortness of breath. VITAL SIGNS: Temperature is 98, heart rate is 84, respiratory rate is 18, blood pressure 123/79, pulse ox 98% on 3 liters nasal cannula. HEENT: Moist mucous membranes. Crowded airway. NECK: Supple. No JVD. LUNGS: Has expiratory wheezing. Few crackles at the bases. HEART: S1, S2. ABDOMEN: Soft, nontender, nondistended. EXTREMITIES: Not much edema. Has a significant head deformity secondary to severe arthritis. LABORATORY DATA: Shows hemoglobin 11.4, hematocrit 34.3, WBC 8.4, platelets 147. INR 2.46. ABG shows pH 7.37, pCO2 of 27, O2 132, this is on nasal cannula. Sodium 142, potassium 4.1, chloride 109, bicarbonate 23, BUN 19, creatinine 0.6, glucose 130, calcium 8.4, AST 17, ALT 20, alk phos is 48. Albumin is 3.0. Influenza A antibodies are negative. Microbiology: Urine culture and blood culture, there is no growth. Has a CT scan of the chest, abdomen and pelvis done on admission which showed there is a perihilar interstitial infiltrate, bibasilar infiltrates, distention with constipation, colonic wall thickening, partially distended bladder, nonobstructive renal stone. IMPRESSION AND PLAN: Bilateral pulmonary infiltrates. Has a diagnosis of chronic obstructive lung disease, constipated, severe arthritis, diabetic. Case discussed with Dr. Nelson in detail. Spoke to nursing staff. Patient has oropharyngeal dysphagia. I suspect one of the bigger component to his disease is chronic aspiration causing bronchospasm and cough. Will do procalcitonin for the morning, also do proBNP. Agree with the present management. Continue antibiotics and steroids, aspiration precaution. We will also suggest getting echocardiogram to assure there is no cardiac asthma. Gastric prophylaxis, DVT prophylaxis. Thank you and we will follow with you. Rehana Jimenez MD
[2017-09-25] MEDS: Sodium Chloride 0.9% 1,000 ML IV SCH (07:48)
[2017-09-25] MEDS: Insulin Reg-LOW-Coverage SC SCH ×4 (07:49→22:30)
[2017-09-25] MEDS: Pantoprazole 40 mg EC Tab PO SCH (08:15)
[2017-09-25] MEDS: POLYETHYLENE GLYCOL 3350 17 GM/Dose PACKET PO SCH ×2 (09:36→17:56)
--- NOTE | 2017-09-25 11:14 | CP.PCM.PN ---
<Rachna Weaver - Last Filed: 09/25/17 11:11> Subjective - Date & Time of Evaluation Date of Evaluation: 09/25/17 Time of Evaluation: 11:11 - Subjective Subjective: Rachna Weaver, PGY1, Medicine Progress Note for Dr Nelson: Patient seen and examined at bedside. No acute events overnight. This AM, pt noted to be wheezing. No fever, chills, nausea, vomiting, sob, excessive cough, abdominal pain. Limited ROS due to pt's baseline mental status. Objective - Vital Signs/Intake and Output Vital Signs (last 24 hours): Temp Pulse Resp BP Pulse Ox 98.3 F 65 22 125/78 96 09/25/17 07:46 09/25/17 07:46 09/25/17 07:46 09/25/17 08:21 09/25/17 07:46 Intake and Output: 09/25/17 09/25/17 06:59 18:59 Intake Total 360 Balance 360 - Medications Medications: Current Medications Aspirin (Aspirin Chewable) 81 mg PO DAILY [facility] Last Admin: 09/25/17 09:36 Dose: 81 mg Atorvastatin Calcium (Lipitor) 10 mg PO DIN [facility] Last Admin: 09/24/17 17:16 Dose: 10 mg Bisacodyl (Dulcolax) 10 mg RC DAILY [facility] Last Admin: 09/25/17 09:36 Dose: 10 mg Doxycycline Hyclate (Doryx) 100 mg PO Q12 [facility] PRN Reason: Protocol Stop: 10/02/17 22:01 Last Admin: 09/25/17 09:36 Dose: 100 mg Furosemide (Lasix) 20 mg IVP Q12 [facility] Insulin Human Regular (Humulin R Low) 0 units SC ACHS [facility] PRN Reason: Protocol Last Admin: 09/25/17 07:49 Dose: Not Given Levalbuterol HCl (Xopenex) 1.25 mg IH Q3H PRN PRN Reason: Shortness of Breath Last Admin: 09/25/17 06:32 Dose: 1.25 mg Levalbuterol HCl (Xopenex) 1.25 mg IH [id number] [facility] Last Admin: 09/25/17 07:34 Dose: 1.25 mg Methylprednisolone (Solu-Medrol) 40 mg IVP Q8 [facility] Last Admin: 09/25/17 05:52 Dose: 40 mg Pantoprazole Sodium (Protonix Ec Tab) 40 mg PO ACB [facility] Last Admin: 09/25/17 08:15 Dose: 40 mg Polyethylene Glycol (Miralax) 17 gm PO BID [facility] Last Admin: 09/25/17 09:36 Dose: 17 gm Tamsulosin HCl (Flomax) 0.4 mg PO DAILY [facility] Last Admin: 09/25/17 09:36 Dose: 0.4 mg - Labs Labs: 09/25/17 06:30 09/25/17 06:30 PT 40.7 SECONDS (9.4-12.5) H 09/25/17 06:30 INR 3.45 (0.93-1.08) H 09/25/17 06:30 APTT 35.3 Seconds (25.1-36.5) 09/22/17 18:00 - Constitutional Appears: Non-toxic, No Acute Distress, Chronically Ill - Head Exam Head Exam: ATRAUMATIC, NORMOCEPHALIC - Eye Exam Eye Exam: EOMI, PERRL. absent: Conjunctival injection, Nystagmus, Scleral icterus Pupil Exam: NORMAL ACCOMODATION, PERRL - ENT Exam ENT Exam: Mucous Membranes Moist - Neck Exam Neck Exam: Full ROM - Respiratory Exam Respiratory Exam: Wheezes. absent: Accessory Muscle Use, Chest Wall Tenderness , Rales, Rhonchi, Respiratory Distress, Stridor Additional comments: no bibasilar crackles - Cardiovascular Exam Cardiovascular Exam: RRR, +S1, +S2. absent: Tachycardia, Murmur - GI/Abdominal Exam GI & Abdominal Exam: Soft, Normal Bowel Sounds. absent: Tenderness, Mass, Organomegaly, Rebound - Extremities Exam Extremities Exam: Normal Inspection. absent: Calf Tenderness, Pedal Edema - Back Exam Back Exam: NORMAL INSPECTION - Neurological Exam Neurological Exam: Alert, Awake (oriented x2. at baseline. + hand/neck chronic contractures noted.) - Psychiatric Exam Psychiatric exam: Normal Affect, Normal Mood - Skin Skin Exam: Dry, Normal Color, Warm Assessment and Plan - Assessment and Plan (Free Text) Assessment: 77 year old male with a past medical history of CVA (2011), atrial fibrillation on Coumadin, NIDDM, hyperlipidemia, hypertension, asthma, gastroesophageal reflux disease, benign prostatic hyperplasia, degenerative nervous system disease, ostearthropathy, admitted for HCAP, asthma exacerbation. Pt on appropriate IV antibiotics, IV steroids with respiratory treatments. Despite the management, pt has continued wheezing. Pulm consulted, suggests chronic aspiration casuing bronchospasm/cough vs cardiac asthma. ProB[place] 56344 ( 475 on admission). Given Lasix 40 IV today, started scheduled lasix. Echo pending: Wheezin/2 chronic aspiration vs cardiac wheezing: - BNP elevated 83159. - Lasix 20 BID IV - Strict I&Os, daily weights, discussed with nursing staff - F/u CXR tomorrow AM - F/u Echo, urine output - Dr Jimenez on board. Help appreciated. HCAP and viral bronchitis: - Febrile in ED, normal lactate and procal, imaging showed bibasilar infiltrates , given Rocephin and Azithro in ED. -Chest X-ray:infiltrates on right lower lung field - CT chest/abd/pelvis: Moderate perihilar interstitial prominence -viral bronchitis vs reactive airway disease. bibasilar nonspecific infiltrates. fecal distention inr ectum - 11 cm - impaction vs constipation. partially distended bladder measuring 13 cm with bladder wall thickening - cystitis - correlate with UA/clinically - pt denies urinary symptoms, UA neg for infection. - Blood cultures NTD, low procal - ID consulted. appreciate recs. C/w Doxycycline D3 Asthma Exacerbation: -Xopenex remington and prn -Methylprednisolone 40 mg IV q8h -NC 2L; keep O2 saturation >92% - Pulm consulted. Appreciate recs. Constipation/fecal impaction: - 2 small BMs overnight. - C/w bowel regimen: miralax bid, dulcolax. - Tolerating PO diet well. Hypomagnesemia, resolved: - Cont to monitor Hx of CVA: -Continue lipitor, aspirin -Swallow evaluation showed puree with thin liquids. -Tolerating thin liquids, pureed diet Hx of Diabetes Mellitus Type II: -Insulin sliding scale-low -Blood glucose 100; continue to monitor -Home medication withheld Hyperlipidemia -Continue lipitor Hypertension -No intervention needed at this time Atrial fibrillation: -INR supratherapeutic. Maintain 2.0-2.5. - Hold Coumadin Gastroesophageal reflux -Continue with protonix Benign prostatic hyperplasia -Continue with home tamsulosin DVT/GI prophylaxis: coumadin+SCDs/protonix Discussed with Dr Nelson. Rachna Weaver, PGY1 <Vanessa Nelson - Last Filed: 09/25/17 12:09> Objective - Vital Signs/Intake and Output Vital Signs (last 24 hours): Temp Pulse Resp BP Pulse Ox 98.3 F 65 22 125/78 96 09/25/17 07:46 09/25/17 07:46 09/25/17 07:46 09/25/17 08:21 09/25/17 07:46 Intake and Output: 09/25/17 09/25/17 06:59 18:59 Intake Total 360 Output Total 500 Balance 360 -500 - Medications Medications: Current Medications Aspirin (Aspirin Chewable) 81 mg PO DAILY [facility] Last Admin: 09/25/17 09:36 Dose: 81 mg Atorvastatin Calcium (Lipitor) 10 mg PO DIN [facility] Last Admin: 09/24/17 17:16 Dose: 10 mg Bisacodyl (Dulcolax) 10 mg RC DAILY [facility] Last Admin: 09/25/17 09:36 Dose: 10 mg Doxycycline Hyclate (Doryx) 100 mg PO Q12 [facility] PRN Reason: Protocol Stop: 10/02/17 22:01 Last Admin: 09/25/17 09:36 Dose: 100 mg Furosemide (Lasix) 20 mg IVP Q12 [facility] Insulin Human Regular (Humulin R Low) 0 units SC ACHS [facility] PRN Reason: Protocol Last Admin: 09/25/17 11:53 Dose: 1 units Levalbuterol HCl (Xopenex) 1.25 mg IH Q3H PRN PRN Reason: Shortness of Breath Last Admin: 09/25/17 06:32 Dose: 1.25 mg Levalbuterol HCl (Xopenex) 1.25 mg IH [id number] [facility] Last Admin: 09/25/17 07:34 Dose: 1.25 mg Methylprednisolone (Solu-Medrol) 40 mg IVP Q8 [facility] Last Admin: 09/25/17 05:52 Dose: 40 mg Pantoprazole Sodium (Protonix Ec Tab) 40 mg PO ACB [facility] Last Admin: 09/25/17 08:15 Dose: 40 mg Polyethylene Glycol (Miralax) 17 gm PO BID [facility] Last Admin: 09/25/17 09:36 Dose: 17 gm Tamsulosin HCl (Flomax) 0.4 mg PO DAILY [facility] Last Admin: 09/25/17 09:36 Dose: 0.4 mg - Labs Labs: 09/25/17 06:30 09/25/17 06:30 PT 40.7 SECONDS (9.4-12.5) H 09/25/17 06:30 INR 3.45 (0.93-1.08) H 09/25/17 06:30 APTT 35.3 Seconds (25.1-36.5) 09/22/17 18:00 Attending/Attestation - Attestation I have personally seen and examined this patient.: Yes I have fully participated in the care of the patient.: Yes I have reviewed all pertinent clinical information, including history, physical exam and plan: Yes Notes (Text): 09/25/17 12:07 77 year old male with past medical history of CVA, atrial fibrillation, diabetes , hypertension, and asthma who presented with altered mental status and shortness of breath. He was found to have pneumonia and asthma exacerbation. Continue with antibiotics and iv steroids. ID and pulmonary evaluation were appreciated. Probnp was also elevated so will give dose of lasix. Repeat cxr ordered for AM. Echocardiogram was also ordered for evaluation of CHF. CT also showed fecal distension/constipation which improved with miralax and dulcolax. INR is supratherapeutic so coumadin will be held for tonight. Vanessa Nelson MD Hospitalist.
--- NOTE | 2017-09-25 18:34 | CP.PCM.PN ---
Subjective - Date & Time of Evaluation Date of Evaluation: 09/25/17 Time of Evaluation: 12:25 - Subjective Subjective: No fevers, not in distress. Objective - Vital Signs/Intake and Output Vital Signs (last 24 hours): Temp Pulse Resp BP Pulse Ox 98.3 F 65 22 141/96 H 96 09/25/17 07:46 09/25/17 07:46 09/25/17 07:46 09/25/17 18:00 09/25/17 07:46 Intake and Output: 09/25/17 09/25/17 06:59 18:59 Intake Total 360 240 Output Total 500 Balance 360 -260 - Medications Medications: Current Medications Aspirin (Aspirin Chewable) 81 mg PO DAILY [facility] Last Admin: 09/25/17 09:36 Dose: 81 mg Atorvastatin Calcium (Lipitor) 10 mg PO DIN [facility] Last Admin: 09/25/17 17:56 Dose: 10 mg Bisacodyl (Dulcolax) 10 mg RC DAILY [facility] Last Admin: 09/25/17 09:36 Dose: 10 mg Doxycycline Hyclate (Doryx) 100 mg PO Q12 [facility] PRN Reason: Protocol Stop: 10/02/17 22:01 Last Admin: 09/25/17 09:36 Dose: 100 mg Furosemide (Lasix) 20 mg IVP Q12 [facility] Last Admin: 09/25/17 18:00 Dose: 20 mg Insulin Human Regular (Humulin R Low) 0 units SC ACHS [facility] PRN Reason: Protocol Last Admin: 09/25/17 17:05 Dose: Not Given Levalbuterol HCl (Xopenex) 1.25 mg IH Q3H PRN PRN Reason: Shortness of Breath Last Admin: 09/25/17 06:32 Dose: 1.25 mg Levalbuterol HCl (Xopenex) 1.25 mg IH [id number] [facility] Last Admin: 09/25/17 13:07 Dose: Not Given Methylprednisolone (Solu-Medrol) 40 mg IVP Q8 [facility] Last Admin: 09/25/17 14:12 Dose: 40 mg Pantoprazole Sodium (Protonix Ec Tab) 40 mg PO ACB [facility] Last Admin: 09/25/17 08:15 Dose: 40 mg Polyethylene Glycol (Miralax) 17 gm PO BID [facility] Last Admin: 09/25/17 17:56 Dose: 17 gm Tamsulosin HCl (Flomax) 0.4 mg PO DAILY [facility] Last Admin: 09/25/17 09:36 Dose: 0.4 mg - Labs Labs: 09/25/17 06:30 09/25/17 06:30 PT 40.7 SECONDS (9.4-12.5) H 09/25/17 06:30 INR 3.45 (0.93-1.08) H 09/25/17 06:30 APTT 35.3 Seconds (25.1-36.5) 09/22/17 18:00 - Constitutional Appears: Non-toxic - Head Exam Head Exam: NORMAL INSPECTION - Neck Exam Neck Exam: absent: Meningismus - Respiratory Exam Respiratory Exam: Decreased Breath Sounds - Cardiovascular Exam Cardiovascular Exam: +S1, +S2 - GI/Abdominal Exam GI & Abdominal Exam: Soft. absent: Tenderness Assessment and Plan - Assessment and Plan (Free Text) Plan: Assessment sepsis due to HCAP, clinically improving history of CVA DM dyslipidemia HTN GERD BPH Plan completet 4-6 more days of PO Doxycycline
--- NOTE | 2017-09-26 00:35 | PN ---
DATE: 09/25/2017 REFERRING PHYSICIAN: Dr. Nelson. SUBJECTIVE: He is lying in the bed at 45 degrees. Feels much better compared to yesterday. Wheezing and rhonchi has much decreased. No nausea, no vomiting, no diarrhea. No leg swelling. Has a multiple joint deformity of hands and legs. OBJECTIVE: GENERAL: In no acute distress. VITAL SIGNS: Temperature 99, heart rate 75, respiratory rate is 20, blood pressure 141/96, pulse ox 97% on room air. HEENT: Moist mucous membrane. Crowded Mallampati score is 4. NECK: Supple. No JVD. LUNGS: Have scattered rhonchi, much better airflow than yesterday. HEART: S1 and S2. ABDOMEN: Soft, nontender. No organomegaly. EXTREMITIES: No edema but multiple joint deformities. NEUROLOGIC: Awake, alert, does follows simple command. MEDICATIONS: He is on aspirin 81 mg daily, doxycycline 100 mg twice a day, Dulcolax 10 mg rectally daily, Flomax 0.4 mg daily, insulin coverage, Lasix 20 mg q.12 hour, Lipitor 10 mg daily, MiraLax 17 gm twice a day, Protonix 40 mg a.c.b., Solu-Medrol 40 mg q.8 hours, Xopenex inhaled q.3 hours p.r.n. and q.6 hours round the clock. LABORATORY DATA: Shows hemoglobin 11.1, hematocrit 36.9, WBC 7.0, platelet is 140. INR 3.45. Sodium 142, potassium 4.1, chloride 107, bicarbonate 27, BUN 18, creatinine 0.6, glucose 132, calcium 8.4, AST 17, ALT 19, alk phos is 47. ProBNP 1170. Albumin is 3.1, procalcitonin 0.05. Microbiology, blood culture, urine culture, there is no growth. IMPRESSION: Bilateral pulmonary infiltrate, chronic obstructive lung disease, constipation, severe arthritis, diabetes. There may be component of aspiration related lung injury, rule out cardiac asthma. Aspiration precaution. Keep head 45 degrees. Continue IV inhaled bronchodilator, antibiotics as per Infectious Disease. Gastric and deep venous thrombosis prophylaxis. Consider attended sleep study upon discharge as outpatient. Thank you, and we will follow with you. Rehana Jimenez MD [facility] # [id number]
[2017-09-26] MEDS: Levalbuterol 0.63 MG/3 ML Inhal Soln UD IH SCH ×4 (02:30→16:21)
[2017-09-26 06:54] LABS: HEMOGLOBIN 11.9 g/dL (14.0-18.0); MEAN CORPUSCULAR HEMOGLOBIN 25.8 pg (25.0-35.0); MEAN CORPUSCULAR HGB CONC 30.7 g/dl (31.0-37.0); MEAN PLATELET VOLUME 10.2 fl (7.0-11.0); RBC 4.62 [, 10^6/uL] (3.5-6.1); RED CELL DISTRIBUTION WIDTH 17.4 % (11.5-14.5); WHITE BLOOD COUNT 7.1 [, 10^3/ul] (4.5-11.0)
[2017-09-26] MEDS: MethylPREDNISolone 40 mg Vial IVP SCH ×3 (06:56→22:20)
[2017-09-26 07:21] LABS: ALB/GLOB RATIO 1.1 (1.1-1.8); ALBUMIN 3.3 g/dL (3.0-4.8); ALT/SGPT 28 U/L (7-56); AST/SGOT 17 U/L (17-59); BLOOD UREA NITROGEN 24 mg/dL (7-21); CALCIUM 8.6 mg/dL (8.4-10.5); GFR AFRICAN-AMERICAN > 60; GFR NON-AFRICAN AMERICAN > 60
[2017-09-26 08:03] LABS: INR 4.39 (0.93-1.08)
[2017-09-26] MEDS: Insulin Reg-LOW-Coverage SC SCH ×4 (08:38→22:19)
[2017-09-26] MEDS: Pantoprazole 40 mg EC Tab PO SCH (08:39)
--- NOTE | 2017-09-26 10:22 | CARD ---
APPROVED REPORT EXAM: Two-dimensional and M-mode echocardiogram with Doppler and color Doppler. Other Information Quality : PoorRhythm : INDICATION Dyspnea 2D DIMENSIONS IVSd1.3 (0.7-1.1cm)LVDd5.3 (3.9-5.9cm) PWd1.3 (0.7-1.1cm)FS (%) 17.0 % M-Mode DIMENSIONS Left Atrium (MM)4.80 (2.5-4.0cm)Aortic Root3.60 (2.2-3.7cm) Aortic Cusp Exc.2.40 (1.5-2.0cm) Aortic Valve AoV Peak Tlrmabby848.0cm/Neha Peak GR.8mmHg Mitral Valve MV E Atwhbrjz77.6cm/sMV A Heynrvry267.0cm/sE/A ratio0.6 TDI Lateral E' Peak V6.46cm/sMedial E' Peak V8.91cm/sE/Lateral E'11.1 E/Medial E'8.0 Tricuspid Valve TR Peak [id number]/sRAP [id number] Peak Gr.27mmHg [id number] LEFT VENTRICLE The left ventricle is normal size. There is normal left ventricular wall thickness. The left ventricular function is normal. The left ventricular ejection fraction is within the normal range. There is normal LV segmental wall motion. RIGHT VENTRICLE The right ventricle is not well visualized. ATRIA The left atrium size is normal. The right atrium is not well visualized. AORTIC VALVE The aortic valve is mildly to moderately calcified. MITRAL VALVE The mitral valve is normal in structure. TRICUSPID VALVE The tricuspid valve is not well visualized. PULMONIC VALVE The pulmonic valve is not well visualized. GREAT VESSELS The aortic root is normal in size. PERICARDIAL EFFUSION There is no pericardial effusion. <Conclusion> This is a very limited study. The left ventricle is normal size. There is normal left ventricular wall thickness. The left ventricular function is normal.
[2017-09-26] MEDS ORDERED: Levalbuterol 1.25 MG/3 ML Inhal Soln UD IH PRN (10:29)
[2017-09-26] MEDS: POLYETHYLENE GLYCOL 3350 17 GM/Dose PACKET PO SCH ×2 (11:38→17:59)
--- NOTE | 2017-09-26 11:58 | CP.PCM.PN ---
<Guera Low - Last Filed: 09/26/17 16:08> Subjective - Date & Time of Evaluation Date of Evaluation: 09/26/17 Time of Evaluation: 09:00 - Subjective Subjective: PGY-2 Progress note for hospitalist service patient seen and examined at bedside, no acute distress. Patient continues to have wheezing. Denies any other complaints. Tolerating diet. Objective - Vital Signs/Intake and Output Vital Signs (last 24 hours): Temp Pulse Resp BP Pulse Ox 98.4 F 87 20 144/74 95 09/26/17 07:30 09/26/17 07:30 09/26/17 07:30 09/26/17 11:37 09/26/17 07:30 Intake and Output: 09/26/17 09/26/17 06:59 18:59 Intake Total 410 Balance 410 - Medications Medications: Current Medications Aspirin (Aspirin Chewable) 81 mg PO DAILY [facility] Last Admin: 09/26/17 11:37 Dose: 81 mg Atorvastatin Calcium (Lipitor) 10 mg PO DIN [facility] Last Admin: 09/25/17 17:56 Dose: 10 mg Bisacodyl (Dulcolax) 10 mg RC DAILY [facility] Last Admin: 09/26/17 11:36 Dose: 10 mg Doxycycline Hyclate (Doryx) 100 mg PO Q12 [facility] PRN Reason: Protocol Stop: 10/02/17 22:01 Last Admin: 09/26/17 11:36 Dose: 100 mg Furosemide (Lasix) 20 mg IVP Q12 [facility] Last Admin: 09/26/17 11:37 Dose: 20 mg Insulin Human Regular (Humulin R Low) 0 units SC ACHS [facility] PRN Reason: Protocol Last Admin: 09/26/17 11:37 Dose: Not Given Levalbuterol HCl (Xopenex) 1.25 mg IH Q2H PRN PRN Reason: Shortness of Breath Levalbuterol HCl (Xopenex) 1.25 mg IH [id number] [facility] Last Admin: 09/26/17 11:25 Dose: 1.25 mg Methylprednisolone (Solu-Medrol) 40 mg IVP Q8 [facility] Last Admin: 09/26/17 06:56 Dose: 40 mg Pantoprazole Sodium (Protonix Ec Tab) 40 mg PO ACB [facility] Last Admin: 09/26/17 08:39 Dose: 40 mg Polyethylene Glycol (Miralax) 17 gm PO BID [facility] Last Admin: 09/26/17 11:38 Dose: 17 gm Tamsulosin HCl (Flomax) 0.4 mg PO DAILY [facility] Last Admin: 09/26/17 11:51 Dose: 0.4 mg - Labs Labs: 09/26/17 06:00 09/26/17 06:00 PT 52.0 SECONDS (9.4-12.5) H 09/26/17 06:00 INR 4.39 (0.93-1.08) H* 09/26/17 06:00 APTT 35.3 Seconds (25.1-36.5) 09/22/17 18:00 - Constitutional Appears: No Acute Distress - Head Exam Head Exam: ATRAUMATIC, NORMAL INSPECTION, NORMOCEPHALIC - Eye Exam Eye Exam: Normal appearance - ENT Exam ENT Exam: Mucous Membranes Moist - Respiratory Exam Respiratory Exam: Rhonchi, Wheezes, NORMAL BREATHING PATTERN. absent: Respiratory Distress - Cardiovascular Exam Cardiovascular Exam: REGULAR RHYTHM, +S1, +S2. absent: Tachycardia, Murmur - GI/Abdominal Exam GI & Abdominal Exam: Soft, Normal Bowel Sounds. absent: Distended, Tenderness - Neurological Exam Neurological Exam: Alert, Awake, Oriented x3 - Skin Skin Exam: Dry, Intact, Normal Color, Warm Assessment and Plan - Assessment and Plan (Free Text) Assessment: 77 year old male with a past medical history of CVA (2011), atrial fibrillation on Coumadin, NIDDM, hyperlipidemia, hypertension, asthma, gastroesophageal reflux disease, benign prostatic hyperplasia, degenerative nervous system disease, ostearthropathy, admitted for HCAP, asthma exacerbation. Pt on appropriate IV antibiotics, IV steroids with respiratory treatments. Despite the management, pt has continued wheezing. Pulm consulted, suggests chronic aspiration causing bronchospasm/cough vs cardiac asthma. ProB[place] elevated 70933 ( 475 on admission). Given Lasix 40 IV today, started scheduled lasix. Plan: Wheezing: - 2/2 chronic aspiration vs cardiac wheezing - BNP elevated 20336. - continue Lasix 20 BID IV - Strict I&Os, daily weights, discussed with nursing staff - CXR pending offical read - Echo nomrla study - pulm consulted, Dr Jimenez, rec appreciated. HCAP and viral bronchitis: - Febrile in ED, normal lactate and procal, imaging showed bibasilar infiltrates , given Rocephin and Azithro in ED. - Chest X-ray: infiltrates on right lower lung field - CT chest/abd/pelvis: Moderate perihilar interstitial prominence viral bronchitis vs reactive airway disease. bibasilar nonspecific infiltrates. fecal distention in rectum - 11 cm - impaction vs constipation. partially distended bladder measuring 13 cm with bladder wall thickening - cystitis - correlate with UA/clinically - pt denies urinary symptoms, UA neg for infection. - Blood cultures negative - low procal - ID consulted, recommended to continue Doxycycline for 4-6 more days, today D4 Asthma Exacerbation: - Xopenex remington q4 and prn q2 - continue Methylprednisolone 40 mg IV q8h - NC 2L; keep O2 saturation >92% - Pulm consulted. Atrial fibrillation: - INR supratherapeutic 4.39 - goal INR 2.0-2.5. - continue to Hold Coumadin - repeat tomorrow Constipation/fecal impaction: - Continue bowel regimen: miralax bid, dulcolax. - Tolerating PO diet well. Hypomagnesemia, resolved: - Cont to monitor Hx of CVA: - Continue lipitor, aspirin - Swallow evaluation showed puree with thin liquids. - Tolerating thin liquids, pureed diet Hx of Diabetes Mellitus Type II: - Insulin sliding scale-low - Blood glucose 100; continue to monitor - Home medication withheld Hyperlipidemia - Continue lipitor Hypertension - No intervention needed at this time Gastroesophageal reflux -Continue with protonix Benign prostatic hyperplasia -Continue with home tamsulosin DVT/GI prophylaxis: coumadin+SCDs/protonix <Vanessa Nelson - Last Filed: 09/26/17 16:14> Objective - Vital Signs/Intake and Output Vital Signs (last 24 hours): Temp Pulse Resp BP Pulse Ox 98.4 F 87 20 144/74 95 09/26/17 07:30 09/26/17 07:30 09/26/17 07:30 09/26/17 11:37 09/26/17 07:30 Intake and Output: 09/26/17 09/26/17 06:59 18:59 Intake Total 410 360 Balance 410 360 - Medications Medications: Current Medications Aspirin (Aspirin Chewable) 81 mg PO DAILY [facility] Last Admin: 09/26/17 11:37 Dose: 81 mg Atorvastatin Calcium (Lipitor) 10 mg PO DIN [facility] Last Admin: 09/25/17 17:56 Dose: 10 mg Bisacodyl (Dulcolax) 10 mg RC DAILY [facility] Last Admin: 09/26/17 11:36 Dose: 10 mg Doxycycline Hyclate (Doryx) 100 mg PO Q12 [facility] PRN Reason: Protocol Stop: 10/02/17 22:01 Last Admin: 09/26/17 11:36 Dose: 100 mg Furosemide (Lasix) 20 mg IVP Q12 [facility] Last Admin: 09/26/17 11:37 Dose: 20 mg Insulin Human Regular (Humulin R Low) 0 units SC ACHS [facility] PRN Reason: Protocol Last Admin: 09/26/17 11:37 Dose: Not Given Levalbuterol HCl (Xopenex) 1.25 mg IH Q2H PRN PRN Reason: Shortness of Breath Levalbuterol HCl (Xopenex) 1.25 mg IH [id number] [facility] Last Admin: 09/26/17 11:25 Dose: 1.25 mg Methylprednisolone (Solu-Medrol) 40 mg IVP Q8 [facility] Last Admin: 09/26/17 13:57 Dose: 40 mg Pantoprazole Sodium (Protonix Ec Tab) 40 mg PO ACB [facility] Last Admin: 09/26/17 08:39 Dose: 40 mg Polyethylene Glycol (Miralax) 17 gm PO BID [facility] Last Admin: 09/26/17 11:38 Dose: 17 gm Tamsulosin HCl (Flomax) 0.4 mg PO DAILY [facility] Last Admin: 09/26/17 11:51 Dose: 0.4 mg - Labs Labs: 09/26/17 06:00 09/26/17 06:00 PT 52.0 SECONDS (9.4-12.5) H 09/26/17 06:00 INR 4.39 (0.93-1.08) H* 09/26/17 06:00 APTT 35.3 Seconds (25.1-36.5) 09/22/17 18:00 Attending/Attestation - Attestation I have personally seen and examined this patient.: Yes I have fully participated in the care of the patient.: Yes I have reviewed all pertinent clinical information, including history, physical exam and plan: Yes Notes (Text): 09/26/17 16:13 77 year old male with past medical history of CVA, atrial fibrillation, diabetes , hypertension, and asthma who presented with altered mental status and shortness of breath. He was found to have pneumonia and asthma exacerbation. Continue with antibiotics and iv steroids. He is being followed by pulmonary and ID. Probnp was also elevated so he was started on iv lasix. Will follow up on repeat CXR today and echocardiogram. CT also showed fecal distension/constipation which improved with miralax and dulcolax. INR is still supratherapeutic so coumadin will be held again for tonight with repeat INR is AM. Vanessa Nelson MD Hospitalist.
[2017-09-26] MEDS ORDERED: Levalbuterol 1.25 MG/3 ML Inhal Soln UD IH SCH (16:14)
--- NOTE | 2017-09-26 16:21 | RAD ---
HISTORY: whezzing/cardiac asthma/pulm congestion COMPARISON: 09/22/2017 FINDINGS: LUNGS: Mild new subsegmental atelectasis and crowding is seen at the lung bases. No new infiltrate is appreciated. PLEURA: No significant pleural effusion identified, no pneumothorax apparent. CARDIOVASCULAR: Unchanged OSSEOUS STRUCTURES: No significant abnormalities. VISUALIZED UPPER ABDOMEN: Normal. OTHER FINDINGS: None. IMPRESSION: New mild subsegmental atelectasis and crowding at the lung bases.
[2017-09-26] MEDS: Levalbuterol 1.25 MG/3 ML Inhal Soln UD IH SCH (21:17)
[2017-09-27] MEDS: Levalbuterol 1.25 MG/3 ML Inhal Soln UD IH SCH ×6 (00:55→21:15)
--- NOTE | 2017-09-27 01:37 | PN ---
DATE: 09/26/2017 SUBJECTIVE: The patient is in bed, in no acute distress. PHYSICAL EXAMINATION: VITAL SIGNS: Temperature is 98, blood pressure is 110/60, respiratory rate of 18. HEENT: Unremarkable. NECK: Supple. LUNGS: Have decreased breath sounds. HEART: Normal S1 and S2. ABDOMEN: Soft. LABORATORY EXAMINATION: Reveals, the patient's chest x-ray reveals subsegmental atelectasis and crowding is seen. ASSESSMENT AND PLAN: This is a 77-year-old with sepsis due to healthcare-associated pneumonia, improving with history of congestive heart failure, diabetes, dyslipidemia, hypertension, gastroesophageal reflux disease, and benign prostatic hypertrophy. The patient is on p.o. doxycycline, complete 4 to 6 more days. Cultures negative and 2 negative procalcitonin. We will follow with you. The patient is also on Solu-Medrol. Gregory Clark MD
--- NOTE | 2017-09-27 04:53 | PN ---
DATE: 09/26/2017 PULMONARY PROGRESS NOTE REFERRING PHYSICIAN: Dr. Nelson. SUBJECTIVE: He is lying in the bed, head at 45 degrees. Night was unremarkable. Still have some cough and wheezing. No nausea or vomiting. No diarrhea. Has upper and lower extremity contractures. PHYSICAL EXAMINATION GENERAL: No acute distress. VITAL SIGNS: Temperature is 98, heart rate is 66, respiratory rate is 20, blood pressure is 124/75 and pulse oximetry 96% on room air. HEENT: Moist mucous membranes. Crowded airway. NECK: Supple. No JVD. LUNGS: Has expiratory wheezing. HEART: S1 and S2. ABDOMEN: Soft and nontender. No organomegaly. EXTREMITIES: Has joint deformity of hands and feet. NEUROLOGIC: Awake, alert and follows simple commands. MEDICATIONS: He is on aspirin 81 mg daily, doxycycline 100 mg twice a day, Dulcolax 10 mg rectally, Flomax 0.4 mg daily, insulin coverage, Lasix 20 mg twice a day, Lipitor 10 mg daily, MiraLax 17 g twice a day, Protonix 40 mg daily, Solu-Medrol 40 mg q. 8 hours, Xopenex inhaled q. 2 hours p.r.n. and q. 4 hours round the clock. LABORATORY DATA: Shows hemoglobin 11.9, hematocrit 38.8, WBC 7.1 and platelet is 152. INR 4.39. Sodium 143, potassium 3.8, chloride 100, bicarbonate 32, BUN 24, creatinine 0.8, glucose 136 and calcium 8.6. AST 17, ALT 20, alk phos is 52, albumin 3.3. Microbiology: Blood culture and urine culture, there is no growth. Chest x-ray done today shows new mild subsegmental atelectasis and crowding of the lung bases. Also have echocardiogram done, which shows right ventricular systolic pressure is 37, very limited study, left ventricle is normal size, normal left ventricle wall thickening, left ventricle function is normal. IMPRESSION AND PLAN: Bilateral pulmonary infiltrates, chronic obstructive lung disease, constipation, severe arthritis, diabetes. May have chronic aspirations. Continue antibiotics. Keep head at 45 degrees. IV and inhaled bronchodilators. Aspiration precaution. May slowly start cutting down steroids as tolerated. Thank you and we will follow with you. Rehana Jimenez MD [facility] # [id number]
[2017-09-27] MEDS: MethylPREDNISolone 40 mg Vial IVP SCH ×3 (06:18→22:41)
[2017-09-27 07:30] LABS: HEMOGLOBIN 12.4 g/dL (14.0-18.0); MEAN CELL VOLUME 83.9 fl (80.0-105.0); MEAN PLATELET VOLUME 10.1 fl (7.0-11.0); RBC 4.77 [, 10^6/uL] (3.5-6.1); RED CELL DISTRIBUTION WIDTH 17.4 % (11.5-14.5)
--- NOTE | 2017-09-27 07:49 | CP.PCM.PN ---
<Guera Low - Last Filed: 09/27/17 10:35> Subjective - Date & Time of Evaluation Date of Evaluation: 09/27/17 Time of Evaluation: 09:00 - Subjective Subjective: PGY-2 progress note for hospitalist service Patient seen and examined at bedside. No acute distress. Per nurse no acute events over night. Patient does not have any complaints at this time. Per nurse patient had bm yesterday, tolerating diet. Objective - Vital Signs/Intake and Output Vital Signs (last 24 hours): Temp Pulse Resp BP Pulse Ox 98.2 F 66 20 124/75 96 09/27/17 00:00 09/27/17 00:00 09/27/17 00:00 09/27/17 00:00 09/27/17 00:00 Intake and Output: 09/27/17 09/27/17 06:59 18:59 Intake Total 240 Balance 240 - Medications Medications: Current Medications Aspirin (Aspirin Chewable) 81 mg PO DAILY [facility] Last Admin: 09/26/17 11:37 Dose: 81 mg Atorvastatin Calcium (Lipitor) 10 mg PO DIN [facility] Last Admin: 09/26/17 17:57 Dose: 10 mg Bisacodyl (Dulcolax) 10 mg RC DAILY [facility] Last Admin: 09/26/17 11:36 Dose: 10 mg Doxycycline Hyclate (Doryx) 100 mg PO Q12 [facility] PRN Reason: Protocol Stop: 10/02/17 22:01 Last Admin: 09/26/17 22:21 Dose: 100 mg Furosemide (Lasix) 20 mg IVP Q12 [facility] Last Admin: 09/26/17 22:12 Dose: 20 mg Insulin Human Regular (Humulin R Low) 0 units SC ACHS [facility] PRN Reason: Protocol Last Admin: 09/26/17 22:19 Dose: Not Given Levalbuterol HCl (Xopenex) 1.25 mg IH Q2H PRN PRN Reason: Shortness of Breath Last Admin: 09/26/17 16:21 Dose: 1.25 mg Levalbuterol HCl (Xopenex) 1.25 mg IH [id number] [facility] Last Admin: 09/27/17 05:30 Dose: 1.25 mg Methylprednisolone (Solu-Medrol) 40 mg IVP Q8 [facility] Last Admin: 09/27/17 06:18 Dose: 40 mg Pantoprazole Sodium (Protonix Ec Tab) 40 mg PO ACB [facility] Last Admin: 09/26/17 08:39 Dose: 40 mg Polyethylene Glycol (Miralax) 17 gm PO BID [facility] Last Admin: 09/26/17 17:59 Dose: Not Given Tamsulosin HCl (Flomax) 0.4 mg PO DAILY [facility] Last Admin: 09/26/17 11:51 Dose: 0.4 mg - Labs Labs: 09/26/17 06:00 09/26/17 06:00 PT 52.0 SECONDS (9.4-12.5) H 09/26/17 06:00 INR 4.39 (0.93-1.08) H* 09/26/17 06:00 APTT 35.3 Seconds (25.1-36.5) 09/22/17 18:00 - Constitutional Appears: Well, No Acute Distress - Head Exam Head Exam: ATRAUMATIC, NORMAL INSPECTION, NORMOCEPHALIC - Eye Exam Eye Exam: Normal appearance - ENT Exam ENT Exam: Mucous Membranes Moist - Respiratory Exam Respiratory Exam: Rhonchi, Wheezes, NORMAL BREATHING PATTERN. absent: Respiratory Distress - Cardiovascular Exam Cardiovascular Exam: REGULAR RHYTHM, +S1, +S2. absent: Tachycardia, Murmur - GI/Abdominal Exam GI & Abdominal Exam: Soft, Normal Bowel Sounds. absent: Distended, Firm, Tenderness - Neurological Exam Neurological Exam: Alert, Awake, Oriented x3 - Skin Skin Exam: Dry, Intact, Normal Color, Warm Assessment and Plan - Assessment and Plan (Free Text) Assessment: 77 year old male with a past medical history of CVA (2011), atrial fibrillation on Coumadin, NIDDM, hyperlipidemia, hypertension, asthma, gastroesophageal reflux disease, benign prostatic hyperplasia, degenerative nervous system disease, ostearthropathy, admitted for HCAP, asthma exacerbation. Pt on appropriate IV antibiotics, IV steroids with respiratory treatments. Despite the management, pt has continued wheezing. Pulm consulted, suggests chronic aspiration causing bronchospasm/cough vs cardiac asthma. ProBNP [place] 40904 ( 475 on admission). Plan: Wheezing: - 2/2 chronic aspiration vs cardiac wheezing - BNP elevated 29727. - continue Lasix 20 BID IV - Strict I&Os, daily weights - repeat CXR on 09/26 showed new mild sub segmental atelectasis and crowding at the lung bases - Echo normal study - pulm consulted, Dr Jimenez, rec appreciated. HCAP and viral bronchitis: - Febrile in ED, normal lactate and procal, imaging showed bibasilar infiltrates , given Rocephin and Azithro in ED. - Chest X-ray on admission: infiltrates on right lower lung field - CT chest/abd/pelvis: Moderate perihilar interstitial prominence viral bronchitis vs reactive airway disease. bibasilar nonspecific infiltrates. fecal distention in rectum - 11 cm - impaction vs constipation. partially distended bladder measuring 13 cm with bladder wall thickening - cystitis - correlate with UA/clinically - pt denies urinary symptoms, UA neg for infection. - Blood cultures negative - low procal - ID consulted, recommended to continue Doxycycline for total of 7-9 days, today Day 4 Asthma Exacerbation: - Xopenex [place] q4 and prn q2 - continue Methylprednisolone 40 mg IV q8h - NC 2L; keep O2 saturation >92% - Pulm consulted. Atrial fibrillation: - INR supratherapeutic 3.88 - goal INR 2.0-2.5. - continue to Hold Coumadin - repeat tomorrow Constipation/fecal impaction: - BM yesterday per nurse - Continue bowel regimen: miralax bid, dulcolax. - Tolerating PO diet well. Hypomagnesemia, resolved: - Cont to monitor, repeat in am Hx of CVA: - Continue lipitor, aspirin - Swallow evaluation showed puree with thin liquids. - Tolerating thin liquids, pureed diet Hx of Diabetes Mellitus Type II: - Insulin sliding scale-low - Blood glucose 100; continue to monitor - Home medication withheld Hyperlipidemia - Continue Lipitor Hypertension - No intervention needed at this time Gastroesophageal reflux -Continue with protonix Benign prostatic hyperplasia -Continue with home tamsulosin DVT/GI prophylaxis: coumadin+SCDs/protonix <Vanessa Nelson - Last Filed: 09/27/17 12:01> Objective - Vital Signs/Intake and Output Vital Signs (last 24 hours): Temp Pulse Resp BP Pulse Ox 98.4 F 66 18 120/73 95 09/27/17 07:30 09/27/17 07:30 09/27/17 07:30 09/27/17 11:32 09/27/17 07:30 Intake and Output: 09/27/17 09/27/17 06:59 18:59 Intake Total 240 Balance 240 - Medications Medications: Current Medications Aspirin (Aspirin Chewable) 81 mg PO DAILY [facility] Last Admin: 09/27/17 11:32 Dose: 81 mg Atorvastatin Calcium (Lipitor) 10 mg PO DIN [facility] Last Admin: 09/26/17 17:57 Dose: 10 mg Bisacodyl (Dulcolax) 10 mg RC DAILY [facility] Last Admin: 09/27/17 11:32 Dose: 10 mg Doxycycline Hyclate (Doryx) 100 mg PO Q12 [facility] PRN Reason: Protocol Stop: 10/02/17 22:01 Last Admin: 09/27/17 11:31 Dose: 100 mg Furosemide (Lasix) 20 mg IVP Q12 [facility] Last Admin: 09/27/17 11:32 Dose: 20 mg Insulin Human Regular (Humulin R Low) 0 units SC ACHS [facility] PRN Reason: Protocol Last Admin: 09/27/17 09:19 Dose: Not Given Levalbuterol HCl (Xopenex) 1.25 mg IH Q2H PRN PRN Reason: Shortness of Breath Last Admin: 09/26/17 16:21 Dose: 1.25 mg Levalbuterol HCl (Xopenex) 1.25 mg IH [id number] [facility] Last Admin: 09/27/17 11:13 Dose: 1.25 mg Methylprednisolone (Solu-Medrol) 40 mg IVP Q8 [facility] Last Admin: 09/27/17 06:18 Dose: 40 mg Pantoprazole Sodium (Protonix Ec Tab) 40 mg PO ACB [facility] Last Admin: 09/27/17 08:54 Dose: 40 mg Polyethylene Glycol (Miralax) 17 gm PO BID [facility] Last Admin: 09/27/17 11:33 Dose: 17 gm Tamsulosin HCl (Flomax) 0.4 mg PO DAILY [facility] Last Admin: 09/27/17 11:32 Dose: 0.4 mg - Labs Labs: 09/27/17 06:15 09/27/17 06:15 PT 45.9 SECONDS (9.4-12.5) H 09/27/17 06:15 INR 3.88 (0.93-1.08) H* 09/27/17 06:15 APTT 35.3 Seconds (25.1-36.5) 09/22/17 18:00 Attending/Attestation - Attestation I have personally seen and examined this patient.: Yes I have fully participated in the care of the patient.: Yes I have reviewed all pertinent clinical information, including history, physical exam and plan: Yes Notes (Text): 09/27/17 11:47 77 year old male with past medical history of CVA, atrial fibrillation, diabetes , hypertension, and asthma who presented with altered mental status and shortness of breath. He was found to have pneumonia and asthma exacerbation. Continue with antibiotics and iv steroids. Still has significant wheezing today ; will keep same dose of steroids. He is being followed by pulmonary and ID. Probnp was also elevated so he was started on iv lasix. Repeat CXR and echocardiogram were reviewed. Will switch to po lasix. CT also showed fecal distension/constipation which improved with miralax and dulcolax. INR is still supratherapeutic so coumadin will be held again for tonight with repeat INR is AM. Will replete and repeat potassium. Vanessa Nelson MD Hospitalist.
[2017-09-27 08:00] LABS: ALB/GLOB RATIO 1.1 (1.1-1.8); ALBUMIN 3.4 g/dL (3.0-4.8); ALT/SGPT 16 U/L (7-56); AST/SGOT 21 U/L (17-59); BLOOD UREA NITROGEN 29 mg/dL (7-21); CALCIUM 8.7 mg/dL (8.4-10.5); GFR AFRICAN-AMERICAN > 60; GFR NON-AFRICAN AMERICAN > 60
[2017-09-27 08:04] LABS: PROTHROMBIN TIME 45.9 SECONDS (9.4-12.5)
[2017-09-27 08:08] LABS: INR 3.88 (0.93-1.08)
[2017-09-27 08:20] VITALS: RESP 18
[2017-09-27] MEDS: Pantoprazole 40 mg EC Tab PO SCH (08:54)
[2017-09-27] MEDS: Insulin Reg-LOW-Coverage SC SCH ×4 (09:19→22:10)
[2017-09-27] MEDS ORDERED: Potassium Chloride 40 mEq/30 ml LIQ UD PO ONE (09:44)
[2017-09-27] MEDS: POLYETHYLENE GLYCOL 3350 17 GM/Dose PACKET PO SCH ×2 (11:33→17:26)
--- NOTE | 2017-09-28 01:38 | PN ---
PULMONARY PROGRESS NOTE DATE: 09/27/2017 REFERRING PHYSICIAN: Dr. Nelson. SUBJECTIVE: The patient is lying on the bed, head at 45 degrees. Still have a few wheezing and rhonchi. No hematemesis. No hematuria. No diarrhea. OBJECTIVE: GENERAL: In no acute distress. VITAL SIGNS: Temperature is 98, heart rate is 66, .respiratory rate is 20, blood pressure is 120/73, and pulse ox is 95% on room air. HEENT: Moist mucous membranes. Crowded airway. NECK: Supple. No JVD. LUNGS: Has a expiratory wheezing. Overall fair airflow. HEART: S1 and S2. ABDOMEN: Soft and nontender. No organomegaly. EXTREMITIES: No edema and has hands and feet contracture. NEUROLOGICAL: Awake and alert. MEDICATIONS: He is on aspirin 81 mg daily, doxycycline 100 mg twice a day, Dulcolax 10 mg rectally daily, Flomax 0.4 mg daily, insulin coverage, Lasix 20 mg twice a day, Lipitor 10 mg daily, MiraLax 17 g twice a day, Protonix 40 mg daily, Solu-Medrol 40 mg q.8 hours, and Xopenex inhaled q.2 hours p.r.n. and q.4 hours [id number]. LABORATORY DATA: Shows hemoglobin 12.4, hematocrit 40.0, WBC 5.0, and platelet is 144. INR 3.88. Sodium 145, potassium 3.5, chloride 99, bicarbonate 37, BUN 29, creatinine 0.8, glucose 149, and calcium 8.7. AST 21, ALT 16, alk phos is 55, and albumin is 3.4. Microbiology: Blood culture and urine culture, there is no growth. IMPRESSION AND PLAN: Bilateral pulmonary infiltrates, chronic obstructive lung disease, constipation, severe arthritis, diabetes, may have sleep apnea syndrome, and oropharyngeal dysphagia. We will decrease Solu-Medrol. Continue antibiotics. Aspirations precautions. Gastric prophylaxis. Followup again in the morning. Thank you and we will follow with you.. Rehana Jimenez MD
[2017-09-28] MEDS: MethylPREDNISolone 40 mg Vial IVP SCH ×2 (06:28→13:20)
[2017-09-28 07:22] LABS: GRAN # 5.88 (1.4-6.5); GRAN % 80.4 % (50.0-68.0); HEMOGLOBIN 12.1 g/dL (14.0-18.0); LYMPH # 0.7 (1.2-3.4); MEAN CELL VOLUME 83.7 fl (80.0-105.0); MEAN CORPUSCULAR HEMOGLOBIN 25.6 pg (25.0-35.0); MEAN CORPUSCULAR HGB CONC 30.6 g/dl (31.0-37.0); MEAN PLATELET VOLUME 9.8 fl (7.0-11.0); MONO # 0.7 (0.1-0.6); MONO % 9.6 % (1.0-6.0); RBC 4.73 [, 10^6/uL] (3.5-6.1); RED CELL DISTRIBUTION WIDTH 17.2 % (11.5-14.5); WHITE BLOOD COUNT 7.3 [, 10^3/ul] (4.5-11.0)
[2017-09-28 07:42] VITALS: BP 112/71; PULSE 64; TEMP 98.6; O2SAT 94
[2017-09-28 07:44] LABS: ALBUMIN 3.2 g/dL (3.0-4.8); ALT/SGPT 18 U/L (7-56); AST/SGOT 19 U/L (17-59); BLOOD UREA NITROGEN 34 mg/dL (7-21); CALCIUM 8.6 mg/dL (8.4-10.5); GFR AFRICAN-AMERICAN > 60; GFR NON-AFRICAN AMERICAN > 60; MAGNESIUM 1.4 mg/dL (1.7-2.2)
[2017-09-28] MEDS: Levalbuterol 1.25 MG/3 ML Inhal Soln UD IH SCH ×2 (07:45→11:08)
[2017-09-28 07:48] LABS: PROTHROMBIN TIME 42.2 SECONDS (9.4-12.5)
[2017-09-28 07:49] LABS: INR 3.58 (0.93-1.08)
[2017-09-28] MEDS: Pantoprazole 40 mg EC Tab PO SCH (08:27)
[2017-09-28] MEDS: Insulin Reg-LOW-Coverage SC SCH ×2 (09:04→13:20)
--- NOTE | 2017-09-28 09:08 | PN ---
DATE: 09/27/2017 SUBJECTIVE: The patient is in bed, in no acute distress. OBJECTIVE: VITAL SIGNS: On exam, temperature is 98, blood pressure is 120/70, respiratory rate of 20, and heart rate of 66. HEENT: Unremarkable. NECK: Supple. LUNGS: Have decreased breath sounds. HEART: Normal S1, S2. ABDOMEN: Soft. LABORATORY EXAMINATION: Reveals a white count of 5, hemoglobin of 12, platelets of 144. Chemistry reveals a BUN of 29 and creatinine of 0.8. Procalcitonin is less than 0.05. Blood cultures and urine cultures are negative. ASSESSMENT: A 77-year-old with sepsis due to healthcare-associated pneumonia, improving with history of congestive heart failure, diabetes, dyslipidemia, hypertension, gastroesophageal reflux disease, benign prostatic hypertrophy, on oral doxycycline. Cultures negative, negative for procalcitonin. Complete a short course of doxycycline p.o. as per orders. Gregory Clark MD
[2017-09-28] MEDS: POLYETHYLENE GLYCOL 3350 17 GM/Dose PACKET PO SCH (11:19)
[2017-09-28] MEDS ORDERED: Ipratropium 0.02% Inhal Soln (0.5 mg/2.5 ml) UD IH SCH (14:00)
--- NOTE | 2017-09-28 19:11 | CP.PCM.DIS ---
<Rachna Weaver - Last Filed: 09/28/17 18:59> Provider - Provider Date of Admission: 09/22/17 20:51 Attending physician: Rehana Melendrez MD Primary care physician: Abdirizak Luis MD Consults: ID Dr Dorina Jimenez Time Spent in preparation of Discharge (in minutes): 35 Diagnosis - Discharge Diagnosis (1) HCAP (healthcare-associated pneumonia) Status: Acute (2) Fecal impaction in rectum Status: Acute (3) Asthma exacerbation Status: Acute Hospital Course - Lab Results Lab Results: Most Recent Lab Values WBC 7.3 10^3/ul (4.5-11.0) D 09/28/17 06:30 RBC 4.73 10^6/uL (3.5-6.1) 09/28/17 06:30 Hgb 12.1 g/dL (14.0-18.0) L 09/28/17 06:30 Hct 39.6 % (42.0-52.0) L 09/28/17 06:30 MCV 83.7 fl (80.0-105.0) 09/28/17 06:30 MCH 25.6 pg (25.0-35.0) 09/28/17 06:30 MCHC 30.6 g/dl (31.0-37.0) L 09/28/17 06:30 RDW 17.2 % (11.5-14.5) H 09/28/17 06:30 Plt Count 149 10^3/uL (120.0-450.0) 09/28/17 06:30 MPV 9.8 fl (7.0-11.0) 09/28/17 06:30 Gran % 80.4 % (50.0-68.0) H 09/28/17 06:30 Lymph % (Auto) 10.0 % (22.0-35.0) L 09/28/17 06:30 [place]er % (Auto) 9.6 % (1.0-6.0) H 09/28/17 06:30 Eos % (Auto) 0.0 % (1.5-5.0) L 09/28/17 06:30 Baso % (Auto) 0.0 % (0.0-3.0) 09/28/17 06:30 Gran # 5.88 (1.4-6.5) 09/28/17 06:30 Lymph # 0.7 (1.2-3.4) L 09/28/17 06:30 [place]er # 0.7 (0.1-0.6) H 09/28/17 06:30 Eos # 0.0 (0.0-0.7) 09/28/17 06:30 Baso # 0.00 K/mm3 (0.0-2.0) 09/28/17 06:30 PT 42.2 SECONDS (9.4-12.5) H 09/28/17 06:30 INR 3.58 (0.93-1.08) H* 09/28/17 06:30 APTT 35.3 Seconds (25.1-36.5) 09/22/17 18:00 pCO2 27 mm/Hg (35-45) L 09/22/17 20:22 pO2 132.0 mm/Hg (80-100) H 09/22/17 20:22 HCO3 15.6 mmol/L (21-28) L 09/22/17 20:22 ABG pH 7.37 (7.35-7.45) 09/22/17 20:22 ABG Total CO2 16.4 mmol.L (22-28) L 09/22/17 20:22 ABG O2 Saturation 99.8 % (95-98) H 09/22/17 20:22 ABG Base Excess -8.1 mmol/L (-2.0-3.0) L 09/22/17 20:22 ABG Potassium 1.9 mmol/L (3.6-5.2) L* 09/22/17 20:22 VBG pH 7.36 (7.32-7.43) 09/22/17 18:34 VBG pCO2 53.0 (40-60) 09/22/17 18:34 VBG HCO3 29.9 mmol/l (21-28) H 09/22/17 18:34 VBG Total CO2 31.5 mmol.L (22-28) H 09/22/17 18:34 VBG O2 Sat (Calc) 100.4 % (40-65) H 09/22/17 18:34 VBG Base Excess 3.2 mmol/L (0.0-2.0) H 09/22/17 18:34 VBG Potassium 4.1 mmol/L (3.6-5.2) 09/22/17 18:34 Sodium 149.0 mmol/L (132-148) H 09/22/17 20:22 Chloride 123.0 mmol/L (98-107) H 09/22/17 20:22 Glucose 69 mg/dl (75-110) L 09/22/17 20:22 Lactate 0.6 mmol/L (0.7-2.1) L 09/22/17 20:22 FiO2 32.0 % 09/22/17 20:22 Sodium 143 mmol/L (132-148) 09/28/17 06:30 Potassium 3.7 mmol/L (3.6-5.0) 09/28/17 06:30 Chloride 100 mmol/L (98-107) 09/28/17 06:30 Carbon Dioxide 37 mmol/L (21-33) H 09/28/17 06:30 Anion Gap 10 (10-20) 09/28/17 06:30 BUN 34 mg/dL (7-21) H 09/28/17 06:30 Creatinine 0.7 mg/dl (0.8-1.5) L 09/28/17 06:30 Est GFR ( Amer) > 60 09/28/17 06:30 Est GFR (Non-Af Amer) > 60 09/28/17 06:30 POC Glucose (mg/dL) 132 mg/dL (65-110) H 09/28/17 11:36 Random Glucose 129 mg/dL (70-110) H 09/28/17 06:30 Calcium 8.6 mg/dL (8.4-10.5) 09/28/17 06:30 Phosphorus 3.5 mg/dL (2.5-4.5) 09/23/17 06:30 Magnesium 1.4 mg/dL (1.7-2.2) L 09/28/17 06:30 Total Bilirubin 0.4 mg/dL (0.2-1.3) 09/28/17 06:30 AST 19 U/L (17-59) 09/28/17 06:30 ALT 18 U/L (7-56) 09/28/17 06:30 Alkaline Phosphatase 47 U/L (38-126) 09/28/17 06:30 Lactate Dehydrogenase 319 U/L (333-699) L 09/22/17 18:00 Total Creatine Kinase 28 U/L (35-230) L 09/22/17 18:00 Troponin I < 0.01 ng/mL 09/22/17 18:00 NT-Pro-B Natriuret Pep 1170 pg/mL (0-450) H 09/25/17 06:30 Total Protein 6.3 g/dL (5.8-8.3) 09/28/17 06:30 Albumin 3.2 g/dL (3.0-4.8) 09/28/17 06:30 Globulin 3.1 gm/dL 09/28/17 06:30 Albumin/Globulin Ratio 1.0 (1.1-1.8) L 09/28/17 06:30 Procalcitonin < 0.05 NG/ML (0.19-0.49) L 09/25/17 06:30 Arterial Blood Potassium 1.9 mmol/L (3.6-5.2) L* 09/22/17 20:22 Venous Blood Potassium 4.1 mmol/L (3.6-5.2) 09/22/17 18:34 Urine Color Yellow (YELLOW) 09/22/17 18:30 Urine Appearance Clear (CLEAR) 09/22/17 18:30 Urine pH 6.0 (4.7-8.0) 09/22/17 18:30 Ur Specific [place] 1.020 (1.005-1.035) 09/22/17 18:30 Urine Protein Negative mg/dL (<30 mg/dL) 09/22/17 18:30 Urine Glucose (UA) Negative mg/dL (NEGATIVE) 09/22/17 18:30 Urine Ketones Negative mg/dL (NEGATIVE) 09/22/17 18:30 Urine Blood Negative (NEGATIVE) 09/22/17 18:30 Urine Nitrate Negative (NEGATIVE) 09/22/17 18:30 Urine Bilirubin Negative (NEGATIVE) 09/22/17 18:30 Urine Urobilinogen 0.2 E.U./dL (<1 E.U./dL) 09/22/17 18:30 Ur Leukocyte Esterase Negative [place]/uL (NEGATIVE) 09/22/17 18:30 Digoxin < 0.4 ng/mL (0.8-2.0) L 09/22/17 18:00 Influenza Typ A,B (EIA) Negative for flu a/b (NEGATIVE) 09/22/17 18:30 - Hospital Course Hospital Course: 77 year old male with PMH CVA (2011), NIDDM, HLD, HTN, afib on Coumadin, asthma , GERD, BPH, DJD, osteoarthropathy, presented this morning with shortness of breath associated with use of accessory muscles as well as bradycardia at 42 bpm. custodial physician was notified and patient was admitted to [facility] ED. As per nursing staff at [facility] patient is not aphasic; normally patient can speak in sentences however does not usually like to speak but will from time to time. However this morning patient was not communicating as he normally can and therefore was seen as a change in mental status. Patient is [place] speaking, understanding of [place] is limited. CT chest/ abd/pelvis shows moderate perihilar interstitial prominence consistent with viral bronchitis, bibasilar infiltrates, fecal distention, paritally distended bladder , nonobstructing renal stone. Pt was adequately treated for HCAP for IV antibiotics Vancomycin and Zosyn. Pt was started on IV steroids, respiratory treatments. Pt had several episodes of wheezing despite the above management. BNP was elevated and echocardiogram obtained showed normal findings. Pt was diuresed with Lasix. Pt had improvement in his respiratory status with the above treatment. Pt's INR was supratherapeutic, Coumadin was held during the hospital course. Pt is discharged on PO doxycycline for 4 more days the group home. Pt is also discharged on Prednisone taper dose. Please monitor patient's INR and adjust the Coumadin dosage accordingly. Discharge Exam - Head Exam Head Exam: ATRAUMATIC, NORMAL INSPECTION, NORMOCEPHALIC - Eye Exam Eye Exam: EOMI, Normal appearance, PERRL. absent: Conjunctival injection, Scleral icterus Pupil Exam: NORMAL ACCOMODATION, PERRL - ENT Exam ENT Exam: Mucous Membranes Moist - Neck Exam Neck exam: Full Rom - Respiratory Exam Respiratory Exam: Clear to PA & Lateral, NORMAL BREATHING PATTERN. absent: Accessory Muscle Use, Chest Wall Tenderness, Rales, Rhonchi, Wheezes - Cardiovascular Exam Cardiovascular Exam: RRR, +S1, +S2. absent: Systolic Murmur - GI/Abdominal Exam GI & Abdominal Exam: Normal Bowel Sounds, Soft. absent: Distended, Firm, Guarding, Organomegaly, Tenderness - Extremities Exam Extremities exam: normal inspection - Neurological Exam Neurological exam: Alert, Oriented x3 - Psychiatric Exam Psychiatric exam: Normal Affect, Normal Mood - Skin Skin Exam: Dry, Normal Color, Warm Discharge Plan - Discharge Medications Prescriptions: predniSONE [Prednisone] 10 mg PO DAILY #3 tab predniSONE [Prednisone] 40 mg PO DAILY #2 tab predniSONE [Prednisone] 20 mg PO DAILY #3 tab predniSONE [predniSONE Tab] 5 mg PO DAILY #3 tab - Follow Up Plan Condition: IMPROVED Disposition: TRANSF TO [facility] Patient education suggested?: Yes Instructions: Asthma (DC), Asthma (GEN), COPD (Chronic Obstructive Pulmonary Disease) (DC), Bacterial Pneumonia (DC), Bronchospasm (GEN), Fecal Impaction ( GEN) Additional Instructions: - Pt was on methyprednisolone in the hospital for asthma exacerbation. Pt is given Prednisone tapering dose: Prednisone 40 mg daily for 2 days -> then 20 mg for 3 days -> then 10 mg x 3 days -> then 5 mg x 3 days. - Pt's INR was supratherapeutic in the hospital: 3.58. Coumadin was held. Please monitor INR at group home and readjust Coumadin dose over there. - Please return to the ER if any concerns. - Meds as per med rec. Referrals: Abdirizak Luis MD [Primary Care Provider] - <Rehana Melendrez - Last Filed: 09/29/17 13:19> Provider - Provider Date of Admission: 09/22/17 20:51 Attending physician: Rehana Melendrez MD Primary care physician: Abdirizak Luis MD Hospital Course - Lab Results Lab Results: Most Recent Lab Values WBC 7.3 10^3/ul (4.5-11.0) D 09/28/17 06:30 RBC 4.73 10^6/uL (3.5-6.1) 09/28/17 06:30 Hgb 12.1 g/dL (14.0-18.0) L 09/28/17 06:30 Hct 39.6 % (42.0-52.0) L 09/28/17 06:30 MCV 83.7 fl (80.0-105.0) 09/28/17 06:30 MCH 25.6 pg (25.0-35.0) 09/28/17 06:30 MCHC 30.6 g/dl (31.0-37.0) L 09/28/17 06:30 RDW 17.2 % (11.5-14.5) H 09/28/17 06:30 Plt Count 149 10^3/uL (120.0-450.0) 09/28/17 06:30 MPV 9.8 fl (7.0-11.0) 09/28/17 06:30 Gran % 80.4 % (50.0-68.0) H 09/28/17 06:30 Lymph % (Auto) 10.0 % (22.0-35.0) L 09/28/17 06:30 Hooker % (Auto) 9.6 % (1.0-6.0) H 09/28/17 06:30 Eos % (Auto) 0.0 % (1.5-5.0) L 09/28/17 06:30 Baso % (Auto) 0.0 % (0.0-3.0) 09/28/17 06:30 Gran # 5.88 (1.4-6.5) 09/28/17 06:30 Lymph # 0.7 (1.2-3.4) L 09/28/17 06:30 Hooker # 0.7 (0.1-0.6) H 09/28/17 06:30 Eos # 0.0 (0.0-0.7) 09/28/17 06:30 Baso # 0.00 K/mm3 (0.0-2.0) 09/28/17 06:30 PT 42.2 SECONDS (9.4-12.5) H 09/28/17 06:30 INR 3.58 (0.93-1.08) H* 09/28/17 06:30 APTT 35.3 Seconds (25.1-36.5) 09/22/17 18:00 pCO2 27 mm/Hg (35-45) L 09/22/17 20:22 pO2 132.0 mm/Hg (80-100) H 09/22/17 20:22 HCO3 15.6 mmol/L (21-28) L 09/22/17 20:22 ABG pH 7.37 (7.35-7.45) 09/22/17 20:22 ABG Total CO2 16.4 mmol.L (22-28) L 09/22/17 20:22 ABG O2 Saturation 99.8 % (95-98) H 09/22/17 20:22 ABG Base Excess -8.1 mmol/L (-2.0-3.0) L 09/22/17 20:22 ABG Potassium 1.9 mmol/L (3.6-5.2) L* 09/22/17 20:22 VBG pH 7.36 (7.32-7.43) 09/22/17 18:34 VBG pCO2 53.0 (40-60) 09/22/17 18:34 VBG HCO3 29.9 mmol/l (21-28) H 09/22/17 18:34 VBG Total CO2 31.5 mmol.L (22-28) H 09/22/17 18:34 VBG O2 Sat (Calc) 100.4 % (40-65) H 09/22/17 18:34 VBG Base Excess 3.2 mmol/L (0.0-2.0) H 09/22/17 18:34 VBG Potassium 4.1 mmol/L (3.6-5.2) 09/22/17 18:34 Sodium 149.0 mmol/L (132-148) H 09/22/17 20:22 Chloride 123.0 mmol/L (98-107) H 09/22/17 20:22 Glucose 69 mg/dl (75-110) L 09/22/17 20:22 Lactate 0.6 mmol/L (0.7-2.1) L 09/22/17 20:22 FiO2 32.0 % 09/22/17 20:22 Sodium 143 mmol/L (132-148) 09/28/17 06:30 Potassium 3.7 mmol/L (3.6-5.0) 09/28/17 06:30 Chloride 100 mmol/L (98-107) 09/28/17 06:30 Carbon Dioxide 37 mmol/L (21-33) H 09/28/17 06:30 Anion Gap 10 (10-20) 09/28/17 06:30 BUN 34 mg/dL (7-21) H 09/28/17 06:30 Creatinine 0.7 mg/dl (0.8-1.5) L 09/28/17 06:30 Est GFR ( Amer) > 60 09/28/17 06:30 Est GFR (Non-Af Amer) > 60 09/28/17 06:30 POC Glucose (mg/dL) 132 mg/dL (65-110) H 09/28/17 11:36 Random Glucose 129 mg/dL (70-110) H 09/28/17 06:30 Calcium 8.6 mg/dL (8.4-10.5) 09/28/17 06:30 Phosphorus 3.5 mg/dL (2.5-4.5) 09/23/17 06:30 Magnesium 1.4 mg/dL (1.7-2.2) L 09/28/17 06:30 Total Bilirubin 0.4 mg/dL (0.2-1.3) 09/28/17 06:30 AST 19 U/L (17-59) 09/28/17 06:30 ALT 18 U/L (7-56) 09/28/17 06:30 Alkaline Phosphatase 47 U/L (38-126) 09/28/17 06:30 Lactate Dehydrogenase 319 U/L (333-699) L 09/22/17 18:00 Total Creatine Kinase 28 U/L (35-230) L 09/22/17 18:00 Troponin I < 0.01 ng/mL 09/22/17 18:00 NT-Pro-B Natriuret Pep 1170 pg/mL (0-450) H 09/25/17 06:30 Total Protein 6.3 g/dL (5.8-8.3) 09/28/17 06:30 Albumin 3.2 g/dL (3.0-4.8) 09/28/17 06:30 Globulin 3.1 gm/dL 09/28/17 06:30 Albumin/Globulin Ratio 1.0 (1.1-1.8) L 09/28/17 06:30 Procalcitonin < 0.05 NG/ML (0.19-0.49) L 09/25/17 06:30 Arterial Blood Potassium 1.9 mmol/L (3.6-5.2) L* 09/22/17 20:22 Venous Blood Potassium 4.1 mmol/L (3.6-5.2) 09/22/17 18:34 Urine Color Yellow (YELLOW) 09/22/17 18:30 Urine Appearance Clear (CLEAR) 09/22/17 18:30 Urine pH 6.0 (4.7-8.0) 09/22/17 18:30 Ur Specific [place] 1.020 (1.005-1.035) 09/22/17 18:30 Urine Protein Negative mg/dL (<30 mg/dL) 09/22/17 18:30 Urine Glucose (UA) Negative mg/dL (NEGATIVE) 09/22/17 18:30 Urine Ketones Negative mg/dL (NEGATIVE) 09/22/17 18:30 Urine Blood Negative (NEGATIVE) 09/22/17 18:30 Urine Nitrate Negative (NEGATIVE) 09/22/17 18:30 Urine Bilirubin Negative (NEGATIVE) 09/22/17 18:30 Urine Urobilinogen 0.2 E.U./dL (<1 E.U./dL) 09/22/17 18:30 Ur Leukocyte Esterase Negative [place]/uL (NEGATIVE) 09/22/17 18:30 Digoxin < 0.4 ng/mL (0.8-2.0) L 09/22/17 18:00 Influenza Typ A,B (EIA) Negative for flu a/b (NEGATIVE) 09/22/17 18:30 Attending/Attestation - Attestation I have personally seen and examined this patient.: Yes I have fully participated in the care of the patient.: Yes I have reviewed all pertinent clinical information, including history, physical exam and plan: Yes Notes (Text): 09/29/17 13:15 Patient was seen and examined with medical investigator. 77 year old male with past medical history of CVA, atrial fibrillation, diabetes , hypertension, and asthma who presented with altered mental status and shortness of breath. He was found to have pneumonia and COPD exacerbation. Patient is back to his base line.He is afebrile, not wheezing.There is no sign of over heart failure. Patient will be discharged back to OR on tapering dose of prednisone. INR is still supratherapeutic , Warfarin is on hold at the time of discharge.His INR need to be rechecked in custodial and warfarin dose need to be adjusted based on INR. Prognosis is guarded.
[2017-09-28] MEDS ORDERED: Budesonide 0.5 mg/2 ml Inhal Susp UD IH SCH (20:00)
[2017-09-28] MEDS ORDERED: Arformoterol 15 mcg/2 ml Inh Sol IH SCH (20:00)
== END 2017-09-28 15:17 | DRG 202 ==
LOC: ED 16:44 → ERH 20:51 → 5RNO 09-23 01:52
PROVIDERS: ADMIT Internal Medicine; ATTEND Internal Medicine
DX: J45.901 Unspecified asthma with (acute) exacerbation (principal); J18.9 Pneumonia, unspecified organism; J44.0 Chronic obstructive pulmonary disease with (acute) lower respiratory infection; I11.0 Hypertensive heart disease with heart failure; I50.9 Heart failure, unspecified; I48.91 Unspecified atrial fibrillation; E11.9 Type 2 diabetes mellitus without complications; E83.42 Hypomagnesemia; R13.12 Dysphagia, oropharyngeal phase; K56.41 Fecal impaction; N40.0 Benign prostatic hyperplasia without lower urinary tract symptoms; K21.9 Gastro-esophageal reflux disease without esophagitis; E78.5 Hyperlipidemia, unspecified; Y95 Nosocomial condition; M19.90 Unspecified osteoarthritis, unspecified site; F03.90 Unspecified dementia, unspecified severity, without behavioral disturbance, psychotic disturbance, mood disturbance, and anxiety; Z86.73 Personal history of transient ischemic attack (TIA), and cerebral infarction without residual deficits; Z79.01 Long term (current) use of anticoagulants; Z79.84 Long term (current) use of oral hypoglycemic drugs; Z88.2 Allergy status to sulfonamides